=== PATIENT | male | born 1950 | race Caucasian/White ===

== ENCOUNTER 2019-07-06 21:15 | Emergency (ER) | payer BC, SELFPAY ==
[2019-07-06 21:21] VITALS: BP 216/89; PULSE 76; RESP 18; TEMP 36.6; O2SAT 98
--- NOTE | 2019-07-06 21:31 | ED.GENADULT ---
HPI - General Adult General Chief complaint: Hypertension Stated complaint: states high blood pressure Time Seen by Provider: 07/06/19 21:30 Source: patient Mode of arrival: Ambulatory Limitations: no limitations History of Present Illness HPI narrative: Patient is a 68-year-old male with history of hypertension presenting with headache and elevated blood pressure. He states that his doctor changed his medication he was on a combination of an MARTÍNEZ-inhibitor and amlodipine however he was having leg swelling so he was taken off amlodipine prior and just placed on the Martínez inhibitor. They have noticed at blood pressure has been more elevated. Today he was having worsening headache they took his blood pressure and it was extremely high so he came to the ED. He now really does not have a headache he has no chest pain or shortness of breath. Blood pressure is noted to be elevated. Related Data Allergies Allergy/AdvReac Type Severity Reaction Status Date / Time No Known Drug Allergies Allergy Verified 07/06/19 21:24 Review of Systems Review of Systems Narrative: GENERAL: Denies chills, fatigue, malaise, fever, sweats, travel HEENT: Denies sinus pain, ear pain, sore throat, difficulty swallowing, neck pain RESPIRATORY: Denies dyspnea, cough, wheezing, hemoptysis, sputum. CARDIOVASCULAR: Denies chest pain, palpitations, orthopnea, edema GASTROINTESTINAL: Denies nausea, vomiting, abdominal pain, diarrhea, constipation, melena. : Denies dysuria, frequency, incontinence, hematuria, urinary retention, flank pain. MUSCULOSKELETAL: Denies weakness, joint pain, or bony pain SKIN: No rash, no erythema, no pruritus NEUROLOGIC: Denies weakness, dizziness, headache, numbness, change in speech, confusion PSYCHIATRIC: No concerning psychosocial issues. 12 point review of systems is negative except for those stated above and HPI Patient History Medical History Hypertension (Acute) Social History Smoking Status: Former smoker alcohol intake frequency: holidays/special occasions only Substance Use Type: does not use Exam Initial Vital Signs Initial Vital Signs: Vital Signs Temperature 97.9 F 07/06/19 21:21 Pulse Rate 76 07/06/19 21:21 Respiratory Rate 18 07/06/19 21:21 Blood Pressure 216/89 H 07/06/19 21:21 Pulse Oximetry 98 07/06/19 21:21 GENERAL: Well-appearing, well-nourished and in no acute distress. HEENT: Head atraumatic,EOMI, pupils reactive, face symmetric, moist mucous membranes CARDIOVASCULAR: Regular rate and rhythm without murmurs, rubs or gallops. RESPIRATORY: Breath sounds equal bilaterally, no wheezes rales or rhonchi. ABDOMEN: Soft, nontender. Normoactive bowel sounds all 4 quadrants. No guarding or rebound. EXTREMITIES: Normal range of motion, no clubbing or edema. Neurovascularly intact NEUROLOGICAL: Alert and oriented x4.Normal gait and speech. SKIN: Warm, dry, no laceration, no petechiae, no rashes or lesions. Course Orders Ordered: ED Orders 07/06/19 21:49 XR chest 1V Stat EKG-12 Lead Stat 07/06/19 21:55 Complete Blood Count AUTO DIFF Stat Comprehensive Metabolic Panel Stat Lipase Stat Troponin & CK Cardiac Panel Stat Discontinued Medications Acetaminophen (Tylenol) 975 mg PO NOW ONE Stop: 07/06/19 23:31 Last Admin: 07/06/19 23:36 Dose: 975 mg Documented by: SHREE Aspirin (Aspirin Chew) 324 mg PO NOW ONE Stop: 07/06/19 21:50 Last Admin: 07/06/19 21:53 Dose: 324 mg Documented by: SANTOS Sodium Chloride (Normal Saline 0.9%) 1,000 mls @ 150 mls/hr IV CONT CARRIE Last Admin: 07/06/19 21:53 Dose: 150 mls/hr Documented by: PURAFARL Vital Signs Vital signs: Vital Signs - 8 hr 07/06/19 21:21 07/06/19 21:41 07/06/19 21:59 Temperature 97.9 F Pulse Rate 76 73 75 Respiratory Rate 18 17 22 Blood Pressure 216/89 H Blood Pressure [Right Arm] 199/67 H 191/68 H Pulse Oximetry 98 99 98 07/06/19 22:30 07/06/19 23:39 Temperature Pulse Rate 71 Respiratory Rate 14 Blood Pressure 167/76 H Blood Pressure [Right Arm] 171/64 H Pulse Oximetry 97 Medical Decision Making Lab Data Lab results reviewed: Yes I reviewed the patient's lab results. Result diagrams: 07/06/19 21:55 10/30/19 21:55 Labs: Lab Results 07/06/19 07/06/19 Range/Units 21:55 21:55 WBC 9.0 (4.5-11.0) X10^3/uL RBC 5.04 (4.5-5.9) X10^6/uL Hgb 14.0 (13.5-17.5) g/dL Hct 40.4 L (41-53) % MCV 80.2 (80-100) fL MCH 27.8 (26-34) PG MCHC 34.7 (30-36) % RDW 16.9 H (11.6-14.8) % Plt Count 213 (150-400) X10^3/uL Neut % (Auto) 61.3 (50-75) % Lymph % (Auto) 23.9 L (25-40) % [place] % (Auto) 9.2 (3-14) % Eos % (Auto) 4.8 H (2-4) % Baso % (Auto) 0.8 (0-2) % Neut # (Auto) 5500 (7398-5706) /uL Lymph # (Auto) 2200 (8839-6806) /uL [place] # (Auto) 800 (0-900) /uL Eos # (Auto) 400 (0-450) /uL Baso # (Auto) 100 (0-100) /uL Sodium 140 (137-145) mmol/L Potassium 3.5 (3.4-5.1) mmol/L Chloride 101 (98-107) mmol/L Carbon Dioxide 28 (22-32) mmol/L BUN 14 (9-20) mg/dL Creatinine 0.80 (0.66-1.25) mg/dL Estimated GFR > 60.0 (>60) mL/min BUN/Creatinine Ratio 17.5 (6-22) Glucose 173 H (80-110) mg/dL Calcium 9.7 (8.4-10.2) mg/dL Total Bilirubin 0.4 (0.2-1.3) mg/dL AST 41 (17-59) IU/L ALT 72 (21-72) IU/L Alkaline Phosphatase 76 (38-126) U/L Total Creatine Kinase 157 (55-170) U/L CK-MB (CK-2) 2.14 (<2.37) ng/mL CK-MB (CK-2) Rel Index 1.4 L (1.5-5.0) % Troponin I 0.017 (0.01-0.034) ng/mL Total Protein 7.6 (6.3-8.2) g/dL Albumin 4.6 (3.5-5.0) g/dL Globulin 3.0 (1.7-4.1) g/dL Albumin/Globulin Ratio 1.5 (1.0-2.8) Lipase 111 (23-300) U/L Imaging Data Chest x-ray: Attestation: I personally reviewed and interpreted this imaging study as follows: My impression: no acute process ECG Data Attestation: I personally reviewed and interpreted this ECG as follows: Prior ECG tracings: not available for review Interpretation: Normal sinus rhythm rate 72 p.r. interval 199 QRS [address] elevations depressions or T-wave inversions MDM Narrative Medical decision making narrative: Patient overall is feeling better mild headache now all blood pressure is decreased significantly without any intervention. I do recommend that he take his blood pressure once daily and record it. He has a follow-up appointment with his PCP next week. He is a has no focal deficits no chest pain or shortness of breath. No sign of end-organ damage. Discharge Plan Departure Patient Disposition: Home Clinical Impression: Hypertension Qualifiers: Hypertension type: essential hypertension Qualified Code(s): I10 - Essential (primary) hypertension Discharge Date/Time: 07/06/19 23:39 Instructions: DI for High Blood Pressure Activity Restrictions/Additional Instructions: *You have been diagnosed with hypertension *What to do: At this time I recommend that you take your blood pressure once a day same time every day either 1st thing in the morning or right before bed. Record the number and report back to your doctor. You will likely need blood pressure medication adjustment. *Continue to take medications as directed *Follow up with your primary care provider in 2-3 days *Return to ER if you should have increasing headache, chest pain or any new, worsening or concerning symptoms Referrals: Toni Massey MD [Primary Care Provider] -
--- NOTE | 2019-07-06 21:36 | PC.NURSE ---
He stated he has had high blood pressure and a headache for 7 weeks now,the nurse hotline told him to come to the ED tonight when these symptoms persisted.
[2019-07-06 21:41] VITALS: BP 199/67; PULSE 73; RESP 17; O2SAT 99
--- NOTE | 2019-07-06 21:49 | DI.RAD.S_ITS ---
PROCEDURE: XR CHEST 1V INDICATIONS: chest pain TECHNIQUE: One view of the chest was acquired. COMPARISON: None. FINDINGS: Surgical changes and devices: Cervical spine fixation hardware Lungs and pleura: Lungs are clear. No pleural effusions or pneumothorax. Mediastinum: Mediastinal contours appear normal. Heart size is normal. Bones and chest wall: No suspicious bony lesions. Overlying soft tissues appear unremarkable. No acute cardiopulmonary disease process. Dictated by: Adelina Iverson MD, PhD on 07/07/2019 at 8:28 Approved by: Adelina Iverson MD, PhD on 07/07/2019 at 8:29
[2019-07-06] MEDS: ASPIRIN 81 MG CHEW TAB 324 MG PO (21:53)
[2019-07-06] MEDS: SODIUM CHLORIDE 0.9% 1,000 ML 150 ML IV (21:53)
[2019-07-06 21:59] VITALS: BP 191/68; PULSE 75; RESP 22; O2SAT 98
[2019-07-06 22:05] LABS: Add Manual Diff / Slide Review NO; Basophils Absolute Auto 100 /uL (0-100); Basophils Percent Auto 0.8 % (0-2); Eosinophils Absolute Auto 400 /uL (0-450); Eosinophils Percent Auto 4.8 % (2-4); Hematocrit 40.4 % (41-53); Lymphocytes Absolute Auto 2200 /uL (1100-4500); Lymphocytes Percent Auto 23.9 % (25-40); Mean Corpuscular HGB Conc 34.7 % (30-36); Mean Corpuscular Hemoglobin 27.8 PG (26-34); Mean Corpuscular Volume 80.2 fL (80-100); Monocytes Absolute Auto 800 /uL (0-900); Monocytes Percent Auto 9.2 % (3-14); Neutrophils Absolute Auto 5500 /uL (1500-7000); Neutrophils Percent Auto 61.3 % (50-75); Platelet Count 213 X10^3/uL (150-400); Red Blood Cell Count 5.04 X10^6/uL (4.5-5.9); Red Cell Distribution Width 16.9 % (11.6-14.8)
[2019-07-06 22:14] LABS: Alanine Aminotransferase 72 IU/L (21-72); Albumin 4.6 g/dL (3.5-5.0); Albumin Globulin Ratio 1.5 (1.0-2.8); Alkaline Phosphatase 76 U/L (38-126); Aspartate Aminotransferase 41 IU/L (17-59); BUN Creatinine Ratio 17.5 (6-22); Bilirubin Total 0.4 mg/dL (0.2-1.3); Blood Urea Nitrogen 14 mg/dL (9-20); Calcium 9.7 mg/dL (8.4-10.2); Carbon Dioxide 28 mmol/L (22-32); Chloride 101 mmol/L (98-107); Creatine Kinase 157 U/L (55-170); Estimated Glomerular Filt Rate > 60.0 mL/min (>60); Glucose 173 mg/dL (80-110); HEMOLYSIS 16 (0-50); Lipase 111 U/L (23-300); Potassium 3.5 mmol/L (3.4-5.1); Sodium 140 mmol/L (137-145); Total Protein 7.6 g/dL (6.3-8.2)
[2019-07-06 22:26] LABS: Troponin I 0.017 ng/mL (0.01-0.034)
[2019-07-06 22:29] LABS: CKMB % Relative Index 1.4 % (1.5-5.0); Creatine Kinase MB 2.14 ng/mL (<2.37)
[2019-07-06 22:30] VITALS: BP 171/64; PULSE 71; RESP 14; O2SAT 97
[2019-07-06] MEDS: ACETAMINOPHEN 325 MG TABLET 975 MG PO (23:36)
[2019-07-06 23:39] VITALS: BP 167/76
== END 2019-07-06 23:39 | disposition home or self-care (01) ==
PROVIDERS: Emergency Provider Emergency Medicine; Family Provider Family Medicine; PCP Family Medicine
DX: I10 Essential (primary) hypertension (principal); R51 Headache
CPT/HCPCS: 36415; 71045; 80053; 82550; 82553; 83690; 84484; 85025; 93005; 93010; 99283

== ENCOUNTER → 2023-11-10 13:32 | Outpatient (CLI) | payer BC, SELFPAY ==
[2023-11-10 15:00] LABS: BUN Creatinine Ratio 21.6 (6-22); Blood Urea Nitrogen 16 mg/dL (9-20); Calcium 9.8 mg/dL (8.4-10.2); Carbon Dioxide 31 mmol/L (22-32); Chloride 105 mmol/L (98-107); Estimated Glomerular Filt Rate > 60 mL/min (>60); Glucose 117 mg/dL (80-110); HEMOLYSIS < 15 (0-50); Potassium 3.5 mmol/L (3.4-5.1); Sodium 143 mmol/L (137-145)
== END ==
PROVIDERS: Family Provider Family Medicine; PCP Family Medicine; Visit Provider Nurse Practitioner Family
DX: I10 Essential (primary) hypertension (principal); Q23.1 Congenital insufficiency of aortic valve; I35.1 Nonrheumatic aortic (valve) insufficiency; I71.21 Aneurysm of the ascending aorta, without rupture
CPT/HCPCS: 36415; 80048; 83735

== ENCOUNTER 2025-02-23 20:42 | Inpatient (IN) | payer BC, SELFPAY ==
[2025-02-23] VITALS (11 sets, daily range): BP systolic 170–213; BP diastolic 72–109; PULSE 68–73; RESP 13–27; TEMP 36.6; O2SAT 96–98; BMI 31.5
--- NOTE | 2025-02-23 20:52 | ED.NEUROSD ---
HPI - Neuro Symptoms/Deficit General Chief Complaint: Neuro Symptoms/Deficit Stated Complaint: Left leg weakness Time Seen by Provider: 02/23/25 20:47 History of Present Illness HPI Narrative: Patient is a 74-year-old male with a past medical history of hypertension diabetes, comes into the ED from home for evaluation of left leg weakness, he states that this started at around 6:00 p.m. today states that he did have a procedure to the superficial part of his skin to remove a mole, he states that this was at around 1:00 p.m., he states that he tolerated this fine was able to walk out of the office. He states that the weakness in his left leg started spontaneously, no trauma or falls, states that he does have history of neck and back surgery but is not complaining of any real pain or deficits. At time of initial evaluation patient NIH of 3 given patient inability to lift leg up. Otherwise sensations are intact Related Data Allergies Allergy/AdvReac Type Severity Reaction Status Date / Time No Known Drug Allergies Allergy Verified 07/06/19 21:24 Review of Systems Review of Systems Narrative: General: Denies fever, chills, weight loss HEENT: Denies headache, eye drainage, eye irritation, head trauma, sore throat, voice change Cardiovascular: Denies any chest pain, palpitations, tachycardia Respiratory: Denies any shortness of breath, cough, wheeze, stridor GI/: Denies any abdominal pain, nausea, vomiting, diarrhea, bright red blood per rectum, melanotic stools, urinary frequency, urinary retention, dysuria, hematuria MSK: Denies any joint pain, muscle pains, swelling Skin: Denies any rashes, lesions, discoloration Neuro: Positive left lower leg weakness Denies any headache, lightheadedness, dizziness, fainting, weakness Psych: Denies SI/HI Patient History Medical History (Updated 02/23/25 @ 22:49 by Humberto Zhou DO) Hypertension Social History Smoking Status: Former smoker alcohol intake frequency: holidays/special occasions only Exam Narrative Exam Narrative: General: Cooperative, well-developed, not in acute distress HEENT: Normocephalic, atraumatic, PERRLA, normal sclera, eyelids normal Neck: Active full range of motion, atraumatic Chest: Normal to inspection, negative crepitus, no overlying erythema ecchymosis Respiratory: Normal respiratory effort, not in acute respiratory distress, clear to auscultation bilaterally negative cough, wheeze, tachypnea, rhonchi, rales Cardiology: Regular rate rhythm negative gallop, murmur, rubs GI/: No tenderness to palpation, soft, non rigid, normal to inspection, exam deferred MSK: Full active range of motion in all 4 extremities, atraumatic, no tenderness to palpation of any bony prominences Skin: No rashes or lesions noted Neuro: Alert awake oriented x3, patient NIH of 3 for inability to lift the left lower extremity, otherwise remainder of examination is normal Psych: Cooperative, negative suicidal or homicidal ideations Initial Vital Signs Initial Vital Signs: Vital Signs Pulse Rate 72 02/23/25 20:48 Blood Pressure 213/88 H 02/23/25 20:48 Pulse Oximetry 97 02/23/25 20:48 Scores NIH Stroke Scale Level of Conciousness: Alert, keenly responsive Ask month/age: Answers both questions correctly. Open/close eyes, close hand: Performs both tasks correctly Best gaze horizontal: Normal Visual wyatt: No visual loss Facial palsy: Normal symetrical movement Left arm drift: No drift for full 10 sec Right arm drift: No drift for full 10 sec Left leg drift: No effort against gravity Right leg drift: No drift for full 5 sec Limb ataxia: Absent Sensory on face/arms/legs: Normal, no sensory loss Best language: No aphasia, normal Dysarthria: Normal Extinction or inattention: No abnormality Total NIH Stroke scale score: 3 Course Orders Ordered: ED Orders 02/23/25 20:54 CT Stroke Stat Urinalysis and Microscopic Stat Urine Drug Screen, Rapid Stat EKG-12 Lead Stat 02/23/25 21:14 CT angio head and neck Stat 02/23/25 21:28 CT lumbar spine wo con Stat 02/23/25 21:45 Complete Blood Count AUTO DIFF Stat Comprehensive Metabolic Panel Stat Ethanol (ETOH) Stat MAG [Magnesium] Stat PTT Partial Thromboplastin Herb Stat Prothrombin Time INR Stat Troponin & CK Cardiac Panel Stat Discontinued Medications Dexamethasone (Dexamethasone 10 Mg/Ml Vial) 10 mg IV NOW ONE Stop: 02/23/25 21:36 Last Admin: 02/23/25 21:58 Dose: 10 mg Documented By: GENET Nicardipine HCl 25 mg/ Sodium (Chloride) 250 mls @ 50 mls/hr IV TITRATE CARRIE; Protocol Last Admin: 02/23/25 22:23 Dose: Not Given Documented By: AB Vital Signs Vital signs: Vital Signs - 8 hr 02/23/25 20:48 02/23/25 20:48 02/23/25 20:53 Temperature 97.8 F Pulse Rate 72 73 Respiratory Rate 20 Blood Pressure 213/88 H 213/88 H Pulse Oximetry 97 96 Oxygen Delivery Method Room Air 02/23/25 21:13 02/23/25 21:14 02/23/25 21:14 Temperature Pulse Rate 72 72 Respiratory Rate 23 Blood Pressure 179/109 H Pulse Oximetry 96 Oxygen Delivery Method 02/23/25 21:30 02/23/25 22:01 02/23/25 22:10 Temperature Pulse Rate 72 69 Respiratory Rate 27 H Blood Pressure 180/79 H Pulse Oximetry 96 96 Oxygen Delivery Method 02/23/25 22:10 02/23/25 22:15 02/23/25 22:15 Temperature Pulse Rate 70 70 Respiratory Rate 13 15 Blood Pressure 188/80 H Pulse Oximetry 96 98 Oxygen Delivery Method 02/23/25 22:20 02/23/25 22:20 Temperature Pulse Rate 68 Respiratory Rate 21 Blood Pressure 170/72 H Pulse Oximetry 96 Oxygen Delivery Method Room Air MDM - Neuro Symptoms/Deficit Lab Data 02/23/25 21:45 02/23/25 21:45 Labs: Lab Results 02/23/25 Range/Units 21:45 WBC 9.2 (4.5-11.0) X10^3/uL RBC 5.04 (4.5-5.9) X10^6/uL Hgb 14.6 (13.5-17.5) g/dL Hct 42.5 (41-53) % MCV 84.4 (80-100) fL MCH 28.9 (26-34) PG MCHC 34.3 (30-36) % RDW 14.3 (11.6-14.8) % Plt Count 217 (150-400) X10^3/uL Neut % (Auto) 54.6 (50-75) % Lymph % (Auto) 25.6 (25-40) % [place] % (Auto) 9.3 (3-14) % Eos % (Auto) 9.5 H (2-4) % Baso % (Auto) 1.0 (0-2) % Neut # (Auto) 5000 (2982-5177) /uL Lymph # (Auto) 2300 (8853-5325) /uL [place] # (Auto) 900 (0-900) /uL Eos # (Auto) 900 H (0-450) /uL Baso # (Auto) 100 (0-100) /uL PT 11.6 (9.4-12.5) SECONDS INR 1.0 (0.9-1.3) APTT 40 H (25.1-36.5) SECONDS Sodium 136 L (137-145) mmol/L Potassium 3.7 (3.4-5.1) mmol/L Chloride 98 (98-107) mmol/L Carbon Dioxide 30 (22-32) mmol/L BUN 19 (9-20) mg/dL Creatinine 0.95 (0.66-1.25) mg/dL Estimated GFR > 60 (>60) mL/min BUN/Creatinine Ratio 20.0 (6-22) Glucose 89 (70-99) mg/dL Calcium 9.7 (8.4-10.2) mg/dL Magnesium 1.8 (1.6-2.3) mg/dL Total Bilirubin 0.5 (0.2-1.3) mg/dL AST 31 (17-59) IU/L ALT 30 (<50) IU/L Alkaline Phosphatase 78 (38-126) U/L Total Creatine Kinase 101 (55-170) U/L Troponin I 0.013 (0.01-0.034) ng/mL Total Protein 7.2 (6.3-8.2) g/dL Albumin 4.5 (3.5-5.0) g/dL Globulin 2.7 (1.7-4.1) g/dL Albumin/Globulin Ratio 1.7 (1.0-2.8) Ethyl Alcohol < 10 (<10) mg/dL Point of Care Testing Glucose POC [address] scan - head: Radiologist's Impression: [address] [address] [address] Scan Report Signed Patient: Anderson Valencia MR#: [id number] : 1950 Acct:[id number] Age/Sex: 74 / M Date of Service: 02/23/25 Loc: ED Accession Number: [id number] Procedure: CT Stroke Ordering Provider: Humberto Zhou D.O. PROCEDURE: CT STROKE INDICATIONS: left lower leg weakness TECHNIQUE: Noncontrast 4.5 mm thick angled axial sections acquired from the foramen magnum to the vertex, with coronal reformats. For radiation dose reduction, the following was used: automated exposure control, adjustment of mA and/or kV according to patient size. COMPARISON: None. FINDINGS: Image quality: Diagnostic. CSF spaces: Basal cisterns are patent. No extra-axial fluid collections. The ventricles are symmetric in size and shape. Brain: No intracranial bleeds or mass effect. There is cerebral volume loss, with resultant ventricular and sulcal prominence. There are periventricular and deep white matter chronic small vessel ischemic changes. There is intracranial internal carotid artery atherosclerosis. Skull and face: Calvarium and visualized facial bones appear intact, without suspicious lesions. Sinuses: Visualized sinuses and mastoids are clear. IMPRESSION: 1. CT head without acute intracranial abnormalities or acute calvarial fractures. 2. Age-related senescent changes and sequela of chronic small vessel ischemic disease. Findings were discussed with Dr. Zhou at 2117 hrs. CTA - brain/neck: Radiologist's Impression: [place] [address] CT Scan Report Signed Patient: Anderson Valencia MR#: [id number] : 1950 Acct:[id number] Age/Sex: 74 / M Date of Service: 02/23/25 Loc: ED Accession Number: [id number] Procedure: CT angio head and neck Ordering Provider: Humberto Zhou D.O. PROCEDURE: CT ANGIO HEAD AND NECK INDICATIONS: left lower leg weakness TECHNIQUE: After the administration of intravenous contrast, 1 mm thick sections acquired from the aortic arch through the [place] of [place]. 3-dimensional jevvqwr-ebkhrbjrt-lcjueecanq (MIP) and/or volume rendering reformats were acquired of the central intracranial vasculature and neck separately. For radiation dose reduction, the following was used: automated exposure control, adjustment of mA and/or kV according to patient size. COMPARISON: [facility], CT, CT STROKE, 02/23/2025, 20:57. FINDINGS: Image quality: Diagnostic. BRAIN: CSF spaces: Ventricles are normal in size and shape. Basal cisterns are patent. No extra-axial fluid collections. Brain: No midline shift. No intracranial masses. No suspicious enhancement. Betts-white matter interface appears intact. Skull and face: Calvarium and facial bones appear intact, without suspicious lesions. Orbits appear normal. Sinuses: Mild left maxillary and right sphenoid sinus mucosal thickening. Remainder of the paranasal sinuses appear clear. Mastoid air cells are well-aerated. HEAD CT ANGIOGRAPHY: Anterior circulation: There are atherosclerotic calcifications of the intracranial segments of the internal carotid arteries. Intracranial internal carotid arteries appear patent without high-grade stenosis. There is flow/opacification within the paired anterior cerebral arteries. There is opacification within the middle cerebral arteries. The anterior communicating artery is seen. No aneurysms are seen. No occlusion. Posterior circulation: Visualized portions of the vertebral arteries are patent and join to form a normal appearing basilar artery. No evidence for high-grade stenosis. No occlusions. There is opacification of the posterior cerebral arteries. No aneurysms are seen. NECK CT ANGIOGRAPHY: Carotid system: The great vessels demonstrate a conventional anatomy as they arise from the aortic arch. Atherosclerotic calcifications of the aortic arch are present. The origins of the common carotid arteries appear patent. The common carotid arteries appear patent throughout their visualized courses without high grade stenosis. Atherosclerosis of the carotid bifurcations bilaterally. The bifurcation regions are both patent without high grade stenosis. The internal carotid arteries demonstrate normal calibers and courses. Posterior circulation: The origins of the vertebral arteries both appear patent without hemodynamically significant stenosis. The more superior extracranial portions of both vertebral arteries also demonstrate normal courses and calibers. They join to form a normal appearing basilar artery. Soft tissues: Visualized neck soft tissues demonstrate no suspicious abnormalities. No apical pneumothorax. Bones: Postsurgical changes from anterior cervical discectomy and fusion of C5 through C7. There are severe spinal canal stenosis at C5 and C6. No suspicious bony lesions. Visualized cervical spine appears normally aligned. No acute compression fractures of the vertebral bodies. IMPRESSION: No significant intracranial arterial abnormality is seen. No significant abnormality is seen within the arteries of the neck. Status post ACDF of C5 through C7 with severe spinal canal stenosis at C5 and C6 Mild left maxillary and right sphenoid sinus disease. If there is persistent or high clinical suspicion for acute cerebrovascular ischemia/stroke, more sensitive evaluation with brain MRI can be considered. Any quantitative measurements of stenosis were performed using NASCET criteria. ECG Data Interpretation: EKG interpreted ED physician sinus 70 beats per minute QTC 416, left axis deviation nonspecific ST changes no STEMI MDM Narrative Medical decision making narrative: Patient is a 74-year-old male with a past medical history of hypertension diabetes presenting for left lower extremity weakness, states it was a sudden onset at 6:00 p.m., he states that this has caused him to not be able to walk, denies any pain to his lower extremity or his lumbar back. He denies any trauma or falls not on any blood thinners. Patient at time of evaluation NIH of 3 for weakness of the left lower extremity, patient unable to keep left leg up against gravity. Patient's blood glucose in the 90s at time of evaluation. Patient states that he did have a local anesthetic to his left lower extremity at around 1:00 p.m. to remove a mole. He states that he was able to walk and ambulate out of the office at that time. He denies any numbness tingling sensations to bilateral lower extremities, he does state that he has a baseline right foot decreased sensation after he had lower back surgery in 2001. He denies any bowel or urinary incontinence, denies any saddle paresthesias. Patient sent immediately to CT scan to rule out stroke 2108: Dr. Condon (tele stroke neurologist) evaluating patient at bedside on stroke robot, was recommending to have nicardipine at bedside and TNK but after evaluation does not believe this is central cause believes it is more peripheral. Is recommending admission as well as additional imaging to the lumbar spine, as well as MRI brain with and without. We will order 10 mg IV Decadron for peripheral neuropathy. 2202: Discussed case with [facility], reaching out for spine consultation given patient has a left lower extremity weakness, awaiting call back 2250: Patient re-evaluated by me, no new complaints at this time, informed her that I am still awaiting discussion with spine surgery at [facility], she understands need for admission or transfer agrees with the plan 2300: Discussed case with Dr. Soria (spine) at [facility], he states that he personally reviewed the images does not see any acute findings, discussed the case and he states that patient does not need emergent or urgent transfer at this time, is stating that patient should be admitted for an MRI of the lumbar and thoracic spine given patient with persistently weak left lower extremity. No further recommendations at this time The patient's management plan was discussed Dr. Villanueva, who agrees to admit the patient to their service and assumes care of this patient at this time. Full admission orders will be placed by the primary team. Critical Care Time Critical Care Time Critical Care Time: Yes Total Critical Care Time: 35 Attestation: Authorized and Performed by: Humberto Zhou DO Total critical care time: Approximately [35] minutes Due to a high probability of clinically significant, life threatening deterioration, the patient required my highest level of preparedness to intervene emergently and I personally spent this critical care time directly and personally managing the patient. This critical care time included obtaining a history; examining the patient; pulse oximetry; ordering and review of studies; arranging urgent treatment with development of a management plan; evaluation of patient's response to treatment; frequent reassessment; and, discussions with other providers. This critical care time was performed to assess and manage the high probability of imminent, life-threatening deterioration that could result in multi-organ failure. It was exclusive of separately billable procedures and treating other patients and teaching time. Please see MDM section and the rest of the note for further information on patient assessment and treatment. Discharge Plan Departure Patient Disposition: Admitted as Observation Clinical Impression: Left leg weakness
--- NOTE | 2025-02-23 21:14 | DI.CT.S_ITS ---
PROCEDURE: CT ANGIO HEAD AND NECK INDICATIONS: left lower leg weakness TECHNIQUE: After the administration of intravenous contrast, 1 mm thick sections acquired from the aortic arch through the [place] of [place]. 3-dimensional srefhez-zfqfbsiyt-bwbbquxekg (MIP) and/or volume rendering reformats were acquired of the central intracranial vasculature and neck separately. For radiation dose reduction, the following was used: automated exposure control, adjustment of mA and/or kV according to patient size. COMPARISON: Merged With [facility], CT, CT STROKE, 02/23/2025, 20:57. FINDINGS: Image quality: Diagnostic. BRAIN: CSF spaces: Ventricles are normal in size and shape. Basal cisterns are patent. No extra-axial fluid collections. Brain: No midline shift. No intracranial masses. No suspicious enhancement. Betts-white matter interface appears intact. Skull and face: Calvarium and facial bones appear intact, without suspicious lesions. Orbits appear normal. Sinuses: Mild left maxillary and right sphenoid sinus mucosal thickening. Remainder of the paranasal sinuses appear clear. Mastoid air cells are well-aerated. HEAD CT ANGIOGRAPHY: Anterior circulation: There are atherosclerotic calcifications of the intracranial segments of the internal carotid arteries. Intracranial internal carotid arteries appear patent without high-grade stenosis. There is flow/opacification within the paired anterior cerebral arteries. There is opacification within the middle cerebral arteries. The anterior communicating artery is seen. No aneurysms are seen. No occlusion. Posterior circulation: Visualized portions of the vertebral arteries are patent and join to form a normal appearing basilar artery. No evidence for high-grade stenosis. No occlusions. There is opacification of the posterior cerebral arteries. No aneurysms are seen. NECK CT ANGIOGRAPHY: Carotid system: The great vessels demonstrate a conventional anatomy as they arise from the aortic arch. Atherosclerotic calcifications of the aortic arch are present. The origins of the common carotid arteries appear patent. The common carotid arteries appear patent throughout their visualized courses without high grade stenosis. Atherosclerosis of the carotid bifurcations bilaterally. The bifurcation regions are both patent without high grade stenosis. The internal carotid arteries demonstrate normal calibers and courses. Posterior circulation: The origins of the vertebral arteries both appear patent without hemodynamically significant stenosis. The more superior extracranial portions of both vertebral arteries also demonstrate normal courses and calibers. They join to form a normal appearing basilar artery. Soft tissues: Visualized neck soft tissues demonstrate no suspicious abnormalities. No apical pneumothorax. Bones: Postsurgical changes from anterior cervical discectomy and fusion of C5 through C7. There are severe spinal canal stenosis at C5 and C6. No suspicious bony lesions. Visualized cervical spine appears normally aligned. No acute compression fractures of the vertebral bodies. IMPRESSION: No significant intracranial arterial abnormality is seen. No significant abnormality is seen within the arteries of the neck. Status post ACDF of C5 through C7 with severe spinal canal stenosis at C5 and C6 Mild left maxillary and right sphenoid sinus disease. If there is persistent or high clinical suspicion for acute cerebrovascular ischemia/stroke, more sensitive evaluation with brain MRI can be considered. Any quantitative measurements of stenosis were performed using NASCET criteria. Dictated by: Angelito Car M.D. on 02/23/2025 at 21:56 Approved by: Angelito Car M.D. on 02/23/2025 at 22:03
--- NOTE | 2025-02-23 21:28 | DI.CT.S_ITS ---
PROCEDURE: CT LUMBAR SPINE WO CON INDICATIONS: left lower leg weakness, hx of spinal fusion TECHNIQUE: Noncontrast 3 mm thick sections acquired from the T12 level to the sacrum. Sagittal and coronal reformats were constructed. For radiation dose reduction, the following was used: automated exposure control. COMPARISON: None. FINDINGS: Image quality: Diagnostic. Bones: There is normal bony alignment. No acute vertebral body compression fractures. No suspicious lytic or blastic bony lesions. No pars defects. Moderate-severe multilevel multifactorial lumbar spondylosis with moderate bilateral facet arthropathy, variable degrees of the bony bilateral neuroforaminal stenosis and severe spinal stenosis at L2-3, L3-4, and moderate-severe stenosis at L4-5. Soft tissues: No retroperitoneal masses or hematomas. Right peripelvic cyst. Partially exophytic left renal cyst. No hydronephrosis. Atherosclerosis of the abdominal aorta and iliac vessels. Prominent hiatal hernia. Visualized aorta is normal in caliber. IMPRESSION: Lumbar spine without acute osseous abnormalities or traumatic malalignment. Severe multilevel, multifactorial lumbar spondylosis with severe spinal canal stenosis noted at L2-3, L3-4, and moderate-severe stenosis at L4-5. There are variable degrees of at least moderate bilateral neuroforaminal stenosis throughout the lumbar spine. Dictated by: Angelito Car M.D. on 02/23/2025 at 23:21 Approved by: Angelito Car M.D. on 02/23/2025 at 23:27
[2025-02-23 21:53] LABS: Add Manual Diff / Slide Review NO; Basophils Absolute Auto 100 /uL (0-100); Eosinophils Absolute Auto 900 /uL (0-450); Eosinophils Percent Auto 9.5 % (2-4); Hematocrit 42.5 % (41-53); Hemoglobin 14.6 g/dL (13.5-17.5); Lymphocytes Absolute Auto 2300 /uL (1100-4500); Lymphocytes Percent Auto 25.6 % (25-40); Mean Corpuscular HGB Conc 34.3 % (30-36); Mean Corpuscular Hemoglobin 28.9 PG (26-34); Mean Corpuscular Volume 84.4 fL (80-100); Monocytes Absolute Auto 900 /uL (0-900); Monocytes Percent Auto 9.3 % (3-14); Neutrophils Absolute Auto 5000 /uL (1500-7000); Neutrophils Percent Auto 54.6 % (50-75); Platelet Count 217 X10^3/uL (150-400); Red Blood Cell Count 5.04 X10^6/uL (4.5-5.9); Red Cell Distribution Width 14.3 % (11.6-14.8); White Blood Cell Count 9.2 X10^3/uL (4.5-11.0)
[2025-02-23] MEDS: DEXAMETHASONE 10 MG/ML VIAL IV (21:58)
[2025-02-23 22:01] LABS: Prothrombin Time 11.6 SECONDS (9.4-12.5)
[2025-02-23 22:04] LABS: PTT Partial Thromboplastin Tim 40 SECONDS (25.1-36.5)
[2025-02-23 22:07] LABS: Magnesium 1.8 mg/dL (1.6-2.3)
[2025-02-23 22:08] LABS: Alanine Aminotransferase 30 IU/L (<50); Albumin 4.5 g/dL (3.5-5.0); Albumin Globulin Ratio 1.7 (1.0-2.8); Alkaline Phosphatase 78 U/L (38-126); Aspartate Aminotransferase 31 IU/L (17-59); Bilirubin Total 0.5 mg/dL (0.2-1.3); Blood Urea Nitrogen 19 mg/dL (9-20); Calcium 9.7 mg/dL (8.4-10.2); Carbon Dioxide 30 mmol/L (22-32); Chloride 98 mmol/L (98-107); Creatine Kinase 101 U/L (55-170); Estimated Glomerular Filt Rate > 60 mL/min (>60); Globulin 2.7 g/dL (1.7-4.1); Glucose 89 mg/dL (70-99); HEMOLYSIS < 15 (0-50); Potassium 3.7 mmol/L (3.4-5.1); Sodium 136 mmol/L (137-145); Total Protein 7.2 g/dL (6.3-8.2)
--- NOTE | 2025-02-23 22:13 | EKG_ITS ---
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
[2025-02-23 22:20] LABS: Ethanol (ETOH) < 10 mg/dL (<10); Troponin I 0.013 ng/mL (0.01-0.034)
--- NOTE | 2025-02-23 23:06 | DI.MRI.S_ITS ---
PROCEDURE: MR LUMBAR SPINE WO/W CON INDICATIONS: left leg weakness TECHNIQUE: Noncontrast sagittal T1 spin echo and T2 fast echo, sagittal STIR, and T2 fast spin echo through the lumbar spine. In cases with scoliosis, additional coronal T2 fast spin echo may be performed. COMPARISON: [facility], CT, CT LUMBAR SPINE WO CON, 02/23/2025, 21:31. FINDINGS: Image quality: Excellent. Alignment and Curvature: Trace retrolisthesis of L1 on L2, L2 on L3, L3 on L4, L4 on L5, L5 on S1. Bone Marrow: Marrow is of normal overall signal. Schmorl's nodes are present most prominently at the superior endplate of L3. No acute vertebral body compression fractures. Spinal Cord: Conus medullaris terminates at the L1 level. Visualized cord demonstrates normal signal and size. Paraspinous Soft Tissues: No paravertebral masses. Discs: Multilevel moderate disc desiccation T12-L1: Minimal disc bulge without spinal stenosis. Mild bilateral foraminal narrowing with facet and ligamentum flavum hypertrophy. L1-L2: Mild disc bulge without spinal stenosis. Mild left foraminal narrowing. L2-L3: Mild disc bulge with spinal stenosis. Moderate right, mild left foraminal narrowing with facet and ligamentum flavum hypertrophy. L3-L4: Mild disc bulge with moderate spinal stenosis. [id number] bilateral foraminal narrowing with facet and ligamentum flavum hypertrophy. L4-L5: Mild disc bulge without spinal stenosis. Moderate left and mild right foraminal with facet and ligamentum flavum hypertrophy. L5-S1: Mild disc bulge with mild spinal stenosis. Severe and moderate to severe right foramen narrowing with mild flattening of the exiting L5 nerve root. Facet and ligamentum flavum hypertrophy is present. IMPRESSION: Multilevel disc bulges and spinal stenosis. Multilevel foraminal narrowing most severe at L5-S1 the surrounding the left exiting nerve. Dictated by: Lityz Ball M.D. on 02/24/2025 at 16:25 Approved by: Litzy Ball M.D. on 02/24/2025 at 16:33
--- NOTE | 2025-02-23 23:06 | DI.MRI.S_ITS ---
PROCEDURE: MR THORACIC SPINE WO/W CON INDICATIONS: left leg weakness TECHNIQUE: Noncontrast sagittal T1 spin echo and T2 fast spin echo, sagittal STIR, axial T1 and T2 fast spin echo through the thoracic spine. After the administration of contrast, axial and sagittal T1 spin echo with fat saturation through the thoracic spine. COMPARISON: [facility], MR, MR CERVICAL SPINE WO/W CON, 02/24/2025, 14:23. [facility], MR, MR LUMBAR SPINE WO/W CON, 02/24/2025, 14:23. FINDINGS: Image quality: Excellent. Alignment and curvature: There is normal bony alignment. Marrow: Marrow is of normal overall signal. No acute vertebral body compression fractures. Spinal cord: Visualized spinal cord is of normal signal and size, without abnormal enhancement. Paraspinous soft tissues: No paravertebral masses or abnormal enhancement. Miscellaneous: Central canal and foramina appear widely patent at all scanned levels. Posterior central protrusion at T5-6, T6-7 mild bulge at T7-T8, , T10-11. IMPRESSION: Scattered disc bulges and protrusions. Dictated by: Litzy Ball M.D. on 02/24/2025 at 16:33 Approved by: Litzy Ball M.D. on 02/24/2025 at 16:40
--- NOTE | 2025-02-23 23:06 | DI.MRI.S_ITS ---
PROCEDURE: MR HEAD/BRAIN WO/W CON INDICATIONS: left leg weakness TECHNIQUE: Noncontrast axial T1 spin echo, axial T2 fast spin echo, sagittal and axial FLAIR, coronal T2 fast spin echo, axial gradient echo, axial diffusion and ADC through the brain. After the administration of contrast, axial and coronal and sagittal T1 spin echo with fat saturation through the brain. COMPARISON: None. FINDINGS: Image quality: Excellent. CSF spaces: Basal cisterns are patent. No extra-axial fluid collections. Ventricles are normal in size and shape. Brain: No midline shift. No intracranial bleeds or masses. No abnormal intracranial enhancement. There is cerebral volume loss for age. There is periventricular white matter chronic small vessel ischemic change. The brainstem appears normal. Diffusion-weighted images demonstrate 4 punctate areas hyperintensity in the right frontal lobe with corresponding hypointense ADC signal. Punctate hyperdensity in the cyst posterior most aspect the posterior right parietal lobe.. No chronic ischemic insults. Normal intravascular flow voids are present. Skull and face: Calvarial marrow is normal in signal. Orbits appear normal. Sinuses: Sinuses and mastoids appear clear. IMPRESSION: 1. Punctate areas restricted diffusion in the frontal lobe most consistent with acute/subacute ischemia. Focus at the posterior right parietal lobe. Secondary to location and size this is difficult to discern an additional focus of subacute ischemia versus artifact. 2. Moderate atrophy and chronic microvascular ischemic changes. Dictated by: Litzy Ball M.D. on 02/24/2025 at 17:00 Approved by: Litzy Ball M.D. on 02/24/2025 at 17:02
[2025-02-24] VITALS (9 sets, daily range): BP systolic 110–169; BP diastolic 49–79; PULSE 68–93; RESP 17–21; TEMP 36.4–36.9; O2SAT 93–97; BMI 31.5
[2025-02-24] MEDS: SODIUM CHLORIDE 0.9% 1,000 ML 75 ML IV (02:12)
[2025-02-24 03:06] LABS: MRSA (Nasal) PCR NOT DETECTED (Not Detect)
[2025-02-24 03:19] LABS: Appearance Urine UA CLEAR; Bilirubin Urine UA NEGATIVE (NEGATIVE); Color Urine UA YELLOW; Glucose Urine UA NEGATIVE (Negative); Ketones Urine UA TRACE (NEGATIVE); Leukocyte Esterase Urine UA NEGATIVE (NEGATIVE); Nitrite Urine UA NEGATIVE (Negative); Occult Blood Urine UA NEGATIVE (Negative); Protein Urine UA NEGATIVE (Negative); Urobilinogen Urine UA 0.2 E.U./dL (0.2); pH Urine UA 6.5 (4.5-8.0)
[2025-02-24 03:25] LABS: Bacteria Urine None Seen; Culture Indicated Urine Cult Not Indicated; RBC Urine None Seen (0-5/HPF); Squamous Epithelial Cell Urine 0-1 /HPF (0-5/HPF); Ur Creatinine Normal (Normal); Ur Specific Gravity Normal (Normal); Urine Amphetamines Negative (Negative); Urine Barbiturates Negative (Negative); Urine Benzodiazepines Negative (Negative); Urine Cocaine Negative (Negative); Urine MDMA Negative (Negative); Urine Methadone Negative (Negative); Urine Opiates Negative (Negative); Urine Oxycodone Negative (Negative); Urine Phencyclidine Negative (Negative); Urine THC Negative (Negative); Urine Tricyclic Antidepressant Negative (Negative); Urine Volume 10mL (spun); Urine pH Normal (Normal); WBC Urine None Seen (0-5/HPF)
--- NOTE | 2025-02-24 03:29 | P.HP_ITS ---
History of Present Illness History of Present Illness Chief complaint: Left leg weakness Narrative: 74-year-old male with past medical history of hypertension and diabetes presents with complaint of acute onset of left leg weakness.? Per the patient's report, around 6 PM today, the patient started to have acute onset of left leg weakness.? Today the patient had a mole in the cyst superficial part of his left leg that was removed.? The patient states that he walked out of the office fine and did not have any issue.? However when he got home this evening around 6 PM he noticed the acute onset of weakness.? The patient however denies any numbness or any abnormal sensation to his left leg.? Denies any headache or in lower back pain.? The patient also denies any slurred speech, facial drooping, or any other focal weakness. In the emergency room, the patient was hemodynamically stable.? NIH was reported to be 3.? On exam per our ER physician the patient does have signs of weakness in his left leg but no other focal finding.? CT scan of the head and neck with angiography showed and without contrast shows no acute finding.? Neurostroke was also consulted and think that this could be due to peripheral rather than central nervous system.? Recommended MRI of the low back.? Of note spinous surgeon was also contacted who agree with plan with that MRI.? Of note CT scan of the lower lumbar spine also negative.? The patient weakness was slightly improved per ER physician after reassessment. [facility] Medical History (Updated 02/23/25 @ 22:49 by Humberto Zhou DO) Hypertension Social History household members: spouse Smoking Status: Former smoker alcohol intake: current Meds Home Medications and Allergies Home Medications ?Medication ?Instructions ?Recorded ?Confirmed ?Type amlodipine 10 mg tablet 10 mg PO DAILY 02/24/25 06/2 0 History blood sugar diagnostic (OneTouch 02/24/25 02/24/25 [employer] Verio test strips) blood-glucose meter (True Metrix 02/24/25 02/24/25 [employer] Glucose Meter) chlorthalidone 25 mg tablet 25 mg PO DAILY 02/24/25 History cholecalciferol (vitamin D3) 125 5,000 unit PO DAILY P RN vitamin 02/24/25 02/24/25 History mcg (5,000 unit) tablet replacement ferrous gluconate 324 mg (37.5 mg 324 mg PO BEDTIME 02/24/25 History iron) tablet hydrocodone-acetaminophen .ROUTE 02/24/25 History ibuprofen 800 mg tablet 800 mg PO 3XD PRN pain 02/2402/24/25 History lisinopril 40 mg tablet 40 mg PO DAILY 02/24/2502/06 History lovastatin 20 mg tablet 20 mg PO DAILY 02/24/2502/06 History metformin 500 mg tablet 1,000 mg PO BID 02/24/25 History metoprolol succinate 100 mg 100 mg PO BID 02/24/25 History tablet,extended release 24 hr jeqadwit-jxy-lqzzg acid 0.4 1 tab PO DAILY 02/24/25 History mg-lycopene 300 mcg-lutein 250 mcg tablet (Centravites 50 Plus) oxycodone 30 mg tablet 30 mg PO TID PRN pain, sever e 02/24/25 02/24/25 History pantoprazole 40 mg tablet,delayed 40 mg PO BID 5 02/24/25 History release potassium chloride 20 mEq 20 meq PO BID 02/24/2502/24 History tablet,extended release pregabalin 150 mg capsule 150 mg PO BID 02/24/2502/24 History semaglutide 0.25 mg or 0.5 mg (2 0.5 mg SUBCUT WEEKLY 02/24/25 02/24/25 History mg/3 mL) subcutaneous pen injector (RacerTimesempic) Allergies Allergy/AdvReac Type Severity Reaction Status Date / Time fluconazole Allergy Unknown Verified 02/24/25 01:10 Review of Systems Review of Systems ROS: Yes All systems reviewed with the patient and are negative except as otherwise documented Exam Vital Signs (past 8 hours): - 02/23/25 20:48 02/23/25 20:48 02/23/25 20:53 Temperature 97.8 F Pulse Rate 72 73 Respiratory Rate 20 Blood Pressure 213/88 H 213/88 H Pulse Oximetry 97 96 Oxygen Delivery Method Room Air 02/23/25 21:13 02/23/25 21:14 02/23/25 21:14 Temperature Pulse Rate 72 72 Respiratory Rate 23 Blood Pressure 179/109 H Pulse Oximetry 96 Oxygen Delivery Method 02/23/25 21:30 02/23/25 22:01 02/23/25 22:10 Temperature Pulse Rate 72 69 Respiratory Rate 27 H Blood Pressure 180/79 H Pulse Oximetry 96 96 Oxygen Delivery Method 02/23/25 22:10 02/23/25 22:15 02/23/25 22:15 Temperature Pulse Rate 70 70 Respiratory Rate 13 15 Blood Pressure 188/80 H Pulse Oximetry 96 98 Oxygen Delivery Method 02/23/25 22:20 02/23/25 22:20 02/23/25 22:30 Temperature Pulse Rate 68 68 Respiratory Rate 21 22 Blood Pressure 170/72 H Pulse Oximetry 96 96 Oxygen Delivery Method Room Air 02/23/25 23:00 02/24/25 01:30 Temperature Pulse Rate 70 Respiratory Rate 21 Blood Pressure Pulse Oximetry 97 Oxygen Delivery Method Room Air Room Air Oxygen Delivery Method Room Air Narrative Exam Narrative: Physical Exam: GENERAL: The patient is not in any acute distressed. Awake and alert. HEENT: Nonicteric sclerae, PERRLA, EOMI. Oropharynx clear. Moist mucous membranes. Conjunctivae appear well perfused. HEART: Regular rate and rhythm without murmurs. No lower extremities edema. LUNGS: Clear to auscultation bilaterally. No wheezing, crackles or rhonchi ABDOMEN: Soft, positive bowel sounds, nontender. SKIN: No rash, no excessive bruising, petechiae, or purpura. NEUROLOGIC: AxO x 3. left leg 4/5 weakness but otherwise no other weakness. Cranial nerves II-XII intact without motor/sensory deficit. Objective Labs 02/23/25 21:45 02/23/25 21:45 Labs: Laboratory Results - last 24 hr 02/23/25 02/24/25 02/24/25 21:45 01:27 03:06 WBC 9.2 RBC 5.04 Hgb 14.6 Hct 42.5 MCV 84.4 MCH 28.9 MCHC 34.3 RDW 14.3 Plt Count 217 Neut % (Auto) 54.6 Lymph % (Auto) 25.6 [place] % (Auto) 9.3 Eos % (Auto) 9.5 H Baso % (Auto) 1.0 Neut # (Auto) 5000 Lymph # (Auto) 2300 [place] # (Auto) 900 Eos # (Auto) 900 H Baso # (Auto) 100 PT 11.6 INR 1.0 APTT 40 H Sodium 136 L Potassium 3.7 Chloride 98 Carbon Dioxide 30 BUN 19 Creatinine 0.95 Estimated GFR > 60 BUN/Creatinine Ratio 20.0 Glucose 89 Calcium 9.7 Magnesium 1.8 Total Bilirubin 0.5 AST 31 ALT 30 Alkaline Phosphatase 78 Total Creatine Kinase 101 Troponin I 0.013 Total Protein 7.2 Albumin 4.5 Globulin 2.7 Albumin/Globulin Ratio 1.7 Urine Color Yellow Urine Appearance Clear Urine pH 6.5 Ur Specific [place] 1.010 Urine Protein Negative Urine Glucose (UA) Negative Urine Ketones Trace H Urine Occult Blood Negative Urine Nitrate Negative Urine Bilirubin Negative Urine Urobilinogen 0.2 Ur Leukocyte Esterase Negative Urine RBC None seen Urine WBC None seen Ur Squamous Epith Cells 0-1 /hpf Urine Bacteria None seen Ur Culture Indicated? Cult not indicated Vol Urine Centrifuged 10ml (spun) Nasal Screen MRSA (PCR) Not detected U Opiates 300ng/mL cut Negative Ur Oxycodone Screen Negative Urine Methadone Screen Negative Ur Barbiturates Screen Negative U Tricyclic Antidepress Negative Ur Phencyclidine Scrn Negative Ur Amphetamines Screen Negative U Methamphetamines Scrn Negative Ur MDMA Scrn (Ecstasy) Negative U Benzodiazepines Scrn Negative Urine Cocaine Screen Negative U Marijuana (THC) Screen Negative Urine Specific [place] Ethyl Alcohol < 10 Ur Creatinine 02/24/25 03:06 WBC RBC Hgb Hct MCV MCH MCHC RDW Plt Count Neut % (Auto) Lymph % (Auto) [place] % (Auto) Eos % (Auto) Baso % (Auto) Neut # (Auto) Lymph # (Auto) [place] # (Auto) Eos # (Auto) Baso # (Auto) PT INR APTT Sodium Potassium Chloride Carbon Dioxide BUN Creatinine Estimated GFR BUN/Creatinine Ratio Glucose Calcium Magnesium Total Bilirubin AST ALT Alkaline Phosphatase Total Creatine Kinase Troponin I Total Protein Albumin Globulin Albumin/Globulin Ratio Urine Color Urine Appearance Urine pH Normal Ur Specific [place] Urine Protein Urine Glucose (UA) Urine Ketones Urine Occult Blood Urine Nitrate Urine Bilirubin Urine Urobilinogen Ur Leukocyte Esterase Urine RBC Urine WBC Ur Squamous Epith Cells Urine Bacteria Ur Culture Indicated? Vol Urine Centrifuged Nasal Screen MRSA (PCR) U Opiates 300ng/mL cut Ur Oxycodone Screen Urine Methadone Screen Ur Barbiturates Screen U Tricyclic Antidepress Ur Phencyclidine Scrn Ur Amphetamines Screen U Methamphetamines Scrn Ur MDMA Scrn (Ecstasy) U Benzodiazepines Scrn Urine Cocaine Screen U Marijuana (THC) Screen Urine Specific [place] Normal Ethyl Alcohol Ur Creatinine Normal Assessment & Plan Assessment & Plan narrative: Acute onset of left leg weakness.? Admit the patient to medical telemetry under observation.? Of note CT scan of the head and neck with and without contrast shows no acute finding. s/p IV steroids given in ER.? Lumbar spine CTs also shows no acute finding.? Per both neurostroke and spine surgeon the recommendation is admit the patient for PT OT and to monitor overnight.? To obtain brain MRI and lumbar's and thoracic MRI in the morning.? Continue to monitor patient closely. Hypertension.? Monitor blood pressure and treat accordingly. Diabetes.? Glucose 110s. Will monitor glucose for now and treat if needed. Hold home metofromin. CODE STATUS full code. DVT prophylaxis heparin subcu. Disposition likely home in 1 to 2 days. - As the provider of this telehealth evaluation, requested by the patient's evaluating physician, I attest that I introduced myself to the patient, provided my credentials and determined that telemedicine via a real-time, 2 way interactive audio and video platform is an appropriate and effective means of providing this service. - I reviewed the patient's chart and had a discussion with the member of the patient's treatment team. - The patient and I mutually agreed with continuation of this evaluation via telemedicine. The patient consented for the telemedicine evaluation. - This virtual encounter was taken place from [place] by Dr. David Villanueva. The patient was evaluated at [facility]. The encounter was approximately 35 minutes. The nurse was present during the entire time of the encounter and was able to move the stethoscope in appropriate directions. Time-Based Coding :: [TOTAL MINUTES] spent with patient and on the chart (including review of chart, obtaining history, exam, reviewing outside data, placing orders, documenting exam and treatment plan, and counseling patient) on [DATE]. Quality VTE Deep Vein Thrombosis/Pulmonary Embolism Present on Admission: No
[2025-02-24 05:10] LABS: Add Manual Diff / Slide Review NO; Basophils Absolute Auto 100 /uL (0-100); Basophils Percent Auto 0.6 % (0-2); Eosinophils Absolute Auto 0 /uL (0-450); Eosinophils Percent Auto 0.3 % (2-4); Hematocrit 45.2 % (41-53); Hemoglobin 15.3 g/dL (13.5-17.5); Lymphocytes Absolute Auto 1300 /uL (1100-4500); Lymphocytes Percent Auto 11.7 % (25-40); Mean Corpuscular HGB Conc 33.8 % (30-36); Mean Corpuscular Hemoglobin 28.5 PG (26-34); Mean Corpuscular Volume 84.3 fL (80-100); Monocytes Absolute Auto 100 /uL (0-900); Monocytes Percent Auto 1.1 % (3-14); Neutrophils Absolute Auto 9500 /uL (1500-7000); Neutrophils Percent Auto 86.3 % (50-75); Platelet Count 212 X10^3/uL (150-400); Red Blood Cell Count 5.37 X10^6/uL (4.5-5.9); Red Cell Distribution Width 14.6 % (11.6-14.8); White Blood Cell Count 11.1 X10^3/uL (4.5-11.0)
--- NOTE | 2025-02-24 05:12 | PC.WOUNDPHOT ---
Left lower extremity, medial of upper calf. Incision measuring 2.5 cm with 3 stitches from outpatient mole removal procedure done 02/23/2025.
[2025-02-24 05:21] LABS: BUN Creatinine Ratio 19.8 (6-22); Blood Urea Nitrogen 17 mg/dL (9-20); Calcium 9.8 mg/dL (8.4-10.2); Carbon Dioxide 25 mmol/L (22-32); Chloride 100 mmol/L (98-107); Estimated Glomerular Filt Rate > 60 mL/min (>60); Glucose 147 mg/dL (70-99); HEMOLYSIS < 15 (0-50); Potassium 3.7 mmol/L (3.4-5.1); Sodium 137 mmol/L (137-145)
--- NOTE | 2025-02-24 08:34 | DI.MRI.S_ITS ---
PROCEDURE: MR CERVICAL SPINE WO/W CON INDICATIONS: left leg weakness, r/o cervical myelopathy TECHNIQUE: Noncontrast sagittal T1 spin echo and T2 fast spin echo, sagittal STIR, foraminal oblique sagittal T2 fast spin echo, axial gradient echo or T2 fast spin echo through the cervical spine. After the administration of contrast, axial and sagittal T1 spin echo with fat saturation through the cervical spine. COMPARISON: None. FINDINGS: Image quality: Excellent. Alignment and curvature: There is normal bony alignment. ACDF of C5 through C7. Marrow: Marrow is normal in overall signal, without suspicious enhancement. Spinal cord: Visualized spinal cord has normal size and signal. No cerebellar tonsillar herniation. No abnormal intramedullary enhancement. Paraspinous soft tissues: No paravertebral masses or suspicious enhancement. C2-3: Normal appearance. C3-4: Disc bulge, resulting in mild spinal canal narrowing and effacement of the anterior cord. C4-5: Disc osteophyte complex causing severe spinal canal narrowing. Moderate bilateral neural foraminal narrowing. C5-6: Osseous fusion of the disc. There is left-sided uncovertebral hypertrophy. C6-7: Osseous fusion of the disc. C7-T1: Disc osteophyte complex causing moderate spinal canal narrowing. IMPRESSION: ACDF of C5 through C7, without complication. Severe spinal canal narrowing at C4-5, with associated moderate bilateral neural foraminal narrowing due to disc osteophyte complex. Mild spinal canal narrowing at C3-4 and moderate spinal canal narrowing at C7-T1. Dictated by: Vivek Lyles M.D. on 02/24/2025 at 17:56 Approved by: Vivek Lyles M.D. on 02/24/2025 at 17:59
[2025-02-24] MEDS: PANTOPRAZOLE DR 40 MG TABLET PO (08:35)
[2025-02-24] MEDS: CHLORTHALIDONE 25 MG TABLET PO (08:35)
[2025-02-24] MEDS: PREGABALIN 75 MG CAPSULE 150 MG PO ×2 (08:35→20:06)
[2025-02-24] MEDS: AMLODIPINE 5 MG TABLET 10 MG PO (08:36)
[2025-02-24] MEDS: HEPARIN 5,000 UNIT/ML VIAL 5000 UNIT SUBCUT (08:36)
[2025-02-24] MEDS: POTASSIUM CHLORIDE 20 MEQ TAB PO ×2 (08:36→20:07)
[2025-02-24] MEDS: lisinopriL 20 MG TABLET 40 MG PO (08:37)
[2025-02-24] MEDS: MULTIVITAMIN 1 TABLET 1 TAB PO (08:37)
[2025-02-24] MEDS: METOPROLOL ER 50 MG TABLET PO (08:37)
[2025-02-24] MEDS: ATORVASTATIN 20 MG TABLET 10 MG PO (08:37)
--- NOTE | 2025-02-24 10:25 | OT.IPNOTE ---
Per hospitalist okay to hold therapy evals until after results of thoracic and lumbar MRI's.
--- NOTE | 2025-02-24 13:01 | PT-IP ANOTE ---
PT eval order received and EMR reviewed. per hospitalist during rounds meeting: hold PT eval pending MRI result. will f/u
--- NOTE | 2025-02-24 13:29 | PM.PN.IH.1 ---
Subjective Subjective Date Patient Seen: 02/24/25 Time Patient Seen: 08:21 Interval history: Narrative: 74-year-old male with past medical history of hypertension and diabetes presents with complaint of acute onset of left leg weakness.? Per the patient's report, around 6 PM today, the patient started to have acute onset of left leg weakness.? Today the patient had a mole in the cyst superficial part of his left leg that was removed.? The patient states that he walked out of the office fine and did not have any issue.? However when he got home this evening around 6 PM he noticed the acute onset of weakness.? The patient however denies any numbness or any abnormal sensation to his left leg.? Denies any headache or in lower back pain.? The patient also denies any slurred speech, facial drooping, or any other focal weakness. In the emergency room, the patient was hemodynamically stable.? NIH was reported to be 3.? On exam per our ER physician the patient does have signs of weakness in his left leg but no other focal finding.? CT scan of the head and neck with angiography showed and without contrast shows no acute finding.? Neurostroke was also consulted and think that this could be due to peripheral rather than central nervous system.? Recommended MRI of the low back.? Of note spinous surgeon was also contacted who agree with plan with that MRI.? Of note CT scan of the lower lumbar spine also negative.? The patient weakness was slightly improved per ER physician after reassessment. Subjective: 02/24: Patient reports persistent left leg weakness, unable to lift it off the bed. He states before 5:00 p.m. yesterday he had normal strength. No arm weakness, back pain or bowel or bladder dysfunction Exam Vital Signs (past 8 hours): - 02/24/25 05:42 02/24/25 07:00 02/24/25 08:40 Temperature 97.8 F 98.3 F Pulse Rate 87 88 Respiratory Rate 17 17 Blood Pressure 112/55 L 115/56 L Pulse Oximetry 93 95 Oxygen Delivery Method Room Air Oxygen Flow Rate 0 02/24/25 09:07 02/24/25 12:31 Temperature 97.8 F Pulse Rate 85 82 Respiratory Rate 21 Blood Pressure 110/68 140/63 Pulse Oximetry 93 Oxygen Delivery Method Oxygen Flow Rate 0 Oxygen Delivery Method Room Air Oxygen Flow Rate 0 Narrative Exam Narrative: Physical Exam: GENERAL: The patient is not in any acute distressed. Awake and alert. HEENT: Nonicteric sclerae, PERRLA, EOMI. Oropharynx clear. Moist mucous membranes. Conjunctivae appear well perfused. HEART: Regular rate and rhythm without murmurs. No lower extremities edema. LUNGS: Clear to auscultation bilaterally. No wheezing, crackles or rhonchi ABDOMEN: Soft, positive bowel sounds, nontender. SKIN: No rash, no excessive bruising, petechiae, or purpura. NEUROLOGIC: AxO x 3. left leg 3/5 weakness but otherwise no other weakness. Cranial nerves II-XII intact without motor/sensory deficit. 2+ patellar and Achilles reflexes bilaterally. Normal upper extremity strength. Objective Imaging *: Radiologist's impression: 1. Brain CT 02/23/2025: 1. CT head without acute intracranial abnormalities or acute calvarial fractures. 2. Age-related senescent changes and sequela of chronic small vessel ischemic disease. 2. Head/neck CTA 02/23/2025: No significant intracranial arterial abnormality is seen. No significant abnormality is seen within the arteries of the neck. Status post ACDF of C5 through C7 with severe spinal canal stenosis at C5 and C6 Mild left maxillary and right sphenoid sinus disease. If there is persistent or high clinical suspicion for acute cerebrovascular ischemia/stroke, more sensitive evaluation with brain MRI can be considered. 3. Lumbar spine CT 02/23/2025: Lumbar spine without acute osseous abnormalities or traumatic malalignment. Severe multilevel, multifactorial lumbar spondylosis with severe spinal canal stenosis noted at L2-3, L3-4, and moderate-severe stenosis at L4-5. There are variable degrees of at least moderate bilateral neuroforaminal stenosis throughout the lumbar spine. Labs 02/24/25 04:50 02/24/25 04:50 Labs: Laboratory Results - last 24 hr 02/23/25 02/24/25 02/24/25 21:45 01:27 03:06 WBC 9.2 RBC 5.04 Hgb 14.6 Hct 42.5 MCV 84.4 MCH 28.9 MCHC 34.3 RDW 14.3 Plt Count 217 Neut % (Auto) 54.6 Lymph % (Auto) 25.6 Long % (Auto) 9.3 Eos % (Auto) 9.5 H Baso % (Auto) 1.0 Neut # (Auto) 5000 Lymph # (Auto) 2300 Long # (Auto) 900 Eos # (Auto) 900 H Baso # (Auto) 100 PT 11.6 INR 1.0 APTT 40 H Sodium 136 L Potassium 3.7 Chloride 98 Carbon Dioxide 30 BUN 19 Creatinine 0.95 Estimated GFR > 60 BUN/Creatinine Ratio 20.0 Glucose 89 Calcium 9.7 Magnesium 1.8 Total Bilirubin 0.5 AST 31 ALT 30 Alkaline Phosphatase 78 Total Creatine Kinase 101 Troponin I 0.013 Total Protein 7.2 Albumin 4.5 Globulin 2.7 Albumin/Globulin Ratio 1.7 Urine Color Yellow Urine Appearance Clear Urine pH 6.5 Ur Specific [place] 1.010 Urine Protein Negative Urine Glucose (UA) Negative Urine Ketones Trace H Urine Occult Blood Negative Urine Nitrate Negative Urine Bilirubin Negative Urine Urobilinogen 0.2 Ur Leukocyte Esterase Negative Urine RBC None seen Urine WBC None seen Ur Squamous Epith Cells 0-1 /hpf Urine Bacteria None seen Ur Culture Indicated? Cult not indicated Vol Urine Centrifuged 10ml (spun) Nasal Screen MRSA (PCR) Not detected U Opiates 300ng/mL cut Negative Ur Oxycodone Screen Negative Urine Methadone Screen Negative Ur Barbiturates Screen Negative U Tricyclic Antidepress Negative Ur Phencyclidine Scrn Negative Ur Amphetamines Screen Negative U Methamphetamines Scrn Negative Ur MDMA Scrn (Ecstasy) Negative U Benzodiazepines Scrn Negative Urine Cocaine Screen Negative U Marijuana (THC) Screen Negative Urine Specific [place] Ethyl Alcohol < 10 Ur Creatinine 02/24/25 02/24/25 03:06 04:50 WBC 11.1 H RBC 5.37 Hgb 15.3 Hct 45.2 MCV 84.3 MCH 28.5 MCHC 33.8 RDW 14.6 Plt Count 212 Neut % (Auto) 86.3 H D Lymph % (Auto) 11.7 L Long % (Auto) 1.1 L Eos % (Auto) 0.3 L Baso % (Auto) 0.6 Neut # (Auto) 9500 H Lymph # (Auto) 1300 Long # (Auto) 100 Eos # (Auto) 0 Baso # (Auto) 100 PT INR APTT Sodium 137 Potassium 3.7 Chloride 100 Carbon Dioxide 25 BUN 17 Creatinine 0.86 Estimated GFR > 60 BUN/Creatinine Ratio 19.8 Glucose 147 H Calcium 9.8 Magnesium Total Bilirubin AST ALT Alkaline Phosphatase Total Creatine Kinase Troponin I Total Protein Albumin Globulin Albumin/Globulin Ratio Urine Color Urine Appearance Urine pH Normal Ur Specific [place] Urine Protein Urine Glucose (UA) Urine Ketones Urine Occult Blood Urine Nitrate Urine Bilirubin Urine Urobilinogen Ur Leukocyte Esterase Urine RBC Urine WBC Ur Squamous Epith Cells Urine Bacteria Ur Culture Indicated? Vol Urine Centrifuged Nasal Screen MRSA (PCR) U Opiates 300ng/mL cut Ur Oxycodone Screen Urine Methadone Screen Ur Barbiturates Screen U Tricyclic Antidepress Ur Phencyclidine Scrn Ur Amphetamines Screen U Methamphetamines Scrn Ur MDMA Scrn (Ecstasy) U Benzodiazepines Scrn Urine Cocaine Screen U Marijuana (THC) Screen Urine Specific [place] Normal Ethyl Alcohol Ur Creatinine Normal [facility] Medical History (Updated 02/23/25 @ 22:49 by Humberto Zhou DO) Hypertension Social History household members: spouse Smoking Status: Former smoker alcohol intake: current Assessment & Plan Assessment & Plan narrative: 1. Acute onset of left leg weakness.? Admit the patient to medical telemetry under observation.? Of note CT scan of the head and neck with and without contrast shows no acute finding. s/p IV steroids given in ER.? Lumbar spine CTs also shows no acute finding.? Per both neurostroke and spine surgeon the recommendation is admit the patient for PT OT and to monitor overnight.? To obtain brain MRI and lumbar's and thoracic MRI in the morning as well as cervical MRI.? Continue to monitor patient closely. 2. Hypertension.? Monitor blood pressure and treat accordingly. 3. Diabetes.? Glucose 110s. Will monitor glucose for now and treat if needed. Hold home metformin. CODE STATUS full code. DVT prophylaxis heparin subcu. Disposition likely home in 1 to 2 days. Quality VTE Deep Vein Thrombosis/Pulmonary Embolism Present on Admission: No IH PROFEE [employer] Specialist Document charge(s): No Charge Codes Subsequent inpatient/observation care: [id number]
--- NOTE | 2025-02-24 13:59 | CM.DANOTE ---
DCP Assessment Note: Pt is a 74yo male, resident of [place], is admitted for left leg weakness. Pt lives in a house with his , Kristan. Pt's Primary Care Provider is Dr. Humberto Castellanos and insurance is [employer]. Reviewed chart and discussed with multidisciplinary team pt's medical status and initial discharge needs. DCP met w/patient at bedside; introduced self and role. Patient was found in bed, alert and oriented, cooperative with assessment. Pt confirmed living situation and good support in . Pt expressed preference in discharge home when cleared, I want to find out what happened. Pt stated concerns that this might be related to a neck fusion completed in 2015 or other L&I related injuries tracing back to 2001. Pt has a hx of SNF Rehab at [facility] after a partial knee replacement in 2023. No home health history. Pt agreeable to working with therapies and following their recommendations after MRIx3 on 02/24. Plan: Awaiting PT/OT evaluations after MRI and recommendation for evolving discharge plans. CM team will follow closely for coordination of discharge plans. SCARLET Ardon Discharge Planning/Care Management CM Discharge Assessment Start: 02/24/25 01:44 Freq: Status: Active Protocol: Document 02/24/25 13:57 MW (Rec: 02/24/25 13:59 MW Desktop) Discharge Planning Assessment Assigned Discharge BELKIS Felder [employer] Observer DPOA/Assigned Maddi Rushing Designee Name Contact Information [phone] Advance Directives? No History Provided By Patient Has Patient been No admitted in last 30 days? Prior Living House Arrangements Comment [place] Household Members spouse Type of Drives own vehicle transporation used prior to admit Independent with ADL Yes 's Is patient alert and Yes oriented? Caregiver for No Another DME Already Rented / Nebulizer Owned Discharge Plan Home Transportation Arrangement Whiteboard Updated Yes in Patient Room with name and ext. # of Supervisor [employer]dn[employer] Truck Installation Comment [id number] Review Status In Process Please Provide Date 02/24/25 Initial DC Assessment Was Performed Next Review Type Continued Stay Review
[2025-02-24] MEDS: LORazepam 1 MG TABLET PO (14:17)
--- NOTE | 2025-02-24 17:07 | DI.CT.S_ITS ---
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 Additional oblique axial 3.0 mm sections acquired through the pharynx. 3 mm thick coronal and sagittal reformats were generated. For radiation dose reduction, the following was used: automated exposure control. COMPARISON: [facility], MR, MR CERVICAL SPINE WO/W CON, 02/24/2025, 14:23. FINDINGS: Image quality: Excellent. Lymph nodes: No enlarged lymph nodes seen throughout the neck. Vessels: Visualized vasculature appears patent. Neck spaces: There is slight asymmetry within right lateral posterior oropharynx. However, no distinct area of abnormal enhancement. No fluid collection. Glands: The parotid and submandibular glands appear normal. Thyroid gland is unremarkable. Miscellaneous: Visualized brain and orbits appear normal. Lung apices appear clear. Superficial soft tissues appear normal. Bones: No suspicious bony lesions. Visualized sinuses and mastoids appear unremarkable. IMPRESSION: Nonspecific slight asymmetrical prominence in the right posterior lateral oropharynx. No enhancing mass or fluid collection. This could be positional. If concern persists, direct visualization by ENT is recommended. Dictated by: Litzy Ball M.D. on 02/24/2025 at 18:32 Approved by: Litzy Ball M.D. on 02/24/2025 at 18:35
[2025-02-24] MEDS: ASPIRIN EC 81 MG TABLET PO (17:32)
[2025-02-24] MEDS: METOPROLOL ER 50 MG TABLET 100 MG PO (20:15)
[2025-02-24] MEDS: APIXABAN 5 MG TABLET PO (20:15)
[2025-02-24] MEDS: ATORVASTATIN 20 MG TABLET 80 MG PO (20:17)
[2025-02-24] MEDS: FERROUS SULFATE 325 MG TABLET PO (20:17)
[2025-02-25] VITALS (11 sets, daily range): BP systolic 98–148; BP diastolic 52–86; PULSE 55–82; RESP 17–20; TEMP 36.3–36.6; O2SAT 95–99
[2025-02-25] MEDS: POTASSIUM CHLORIDE 20 MEQ TAB PO ×2 (08:12→21:15)
[2025-02-25] MEDS: PREGABALIN 75 MG CAPSULE 150 MG PO ×2 (08:12→21:14)
[2025-02-25] MEDS: CHLORTHALIDONE 25 MG TABLET PO (08:12)
[2025-02-25] MEDS: ASPIRIN EC 81 MG TABLET PO (08:12)
[2025-02-25] MEDS: PANTOPRAZOLE DR 40 MG TABLET PO ×2 (08:13→21:16)
[2025-02-25] MEDS: ACETAMINOPHEN 325 MG TABLET 650 MG PO (08:13)
[2025-02-25] MEDS: MULTIVITAMIN 1 TABLET 1 TAB PO (08:13)
[2025-02-25] MEDS: APIXABAN 5 MG TABLET PO ×2 (08:13→21:14)
[2025-02-25] MEDS: lisinopriL 20 MG TABLET 40 MG PO (08:13)
[2025-02-25] MEDS: AMLODIPINE 5 MG TABLET 10 MG PO (08:13)
[2025-02-25] MEDS: METOPROLOL ER 50 MG TABLET PO ×2 (08:13→21:15)
[2025-02-25] MEDS: SODIUM CHLORIDE 0.9% FLUSH 10 ML IV ×2 (08:21→21:17)
[2025-02-25] MEDS: HYDROCODONE/ACET 5/325 TABLET 1 TAB PO (11:21)
--- NOTE | 2025-02-25 11:30 | PT.IIE ---
Current Diagnoses Cerebral infarction due to embolism of unspecified cerebral artery (02/23/25) Medical History (Last Reviewed 07/06/19 @ 23:21 by Mary Perry DO) Hypertension Physical Therapy Inpatient Evaluation/Re-Eval M1 PT/OT-IP Prior Functional Status Start: 02/25/25 13:05 Freq: NEEDED Status: Active Protocol: Document 02/25/25 11:30 AB (Rec: 02/25/25 13:18 AB Desktop) Medical Review Prior Functional Status Medical History Yes Reviewed Communication able to make needs known Mobility and Gait pt stated that he was independent with all mobilities and ambulation without AD Social History Household Members spouse Living Arrangements House Number of Floors ( One Floor Floors) Number of Stairs To no steps to enter Enter/Railing? Home Environment Standard Height Toilet,Walk in Shower Home Equipment Four Wheel Walker,Straight Cane,Shower Seat with Backrest,Hand Held Shower,Grab Bars In Shower M2 PT-IP Current Condition Start: 02/25/25 13:05 Freq: NEEDED Status: Active Protocol: Document 02/25/25 11:30 AB (Rec: 02/25/25 13:18 AB Desktop) Physical Therapy Current Condition Current Condition Evaluation Date 02/25/25 Treatment Diagnosis CVA; difficulty in walking Onset Date 02/23/25 M3 PT-IP Subjective Start: 02/25/25 13:05 Freq: NEEDED Status: Active Protocol: Document 02/25/25 11:30 AB (Rec: 02/25/25 13:18 AB Desktop) Subjective Physical Therapy Visit Type Type Initial Evaluation Visit Start Time 11:30 Visit Stop Time 12:00 Number of SCHOOL CUSTODIAN Visits 0 Physical Therapy Visit Comments Patient Comments agreeable to do PT Therapy Pain Assessment Pain When Pain Assessed At Rest Pain Present Pain Present Pain Reported Location Back Intensity 5 Scale Used Numeric (0 - 10) Pain Behaviors Guarding,Holding Area Pain Management Distraction,Modification of Treatment,Re-positioning, Techniques Timing of Activity with Medications M4 PT-IP Mobility and Gait Start: 02/25/25 13:05 Freq: NEEDED Status: Active Protocol: Document 02/25/25 11:30 AB (Rec: 02/25/25 13:18 AB Desktop) PT-Bed Mobility Assessment Supine to Sit Supine to Sit Minimal Assistance PT-Transfer Assessment Sit to and From Stand Sit to and from Maximum Assistance,1 Person Assistance,Use of Upper Stand Extremities Equipment Transfer Assistive Gait Belt,Front Wheeled Walker Device Orthotic/Prosthetic No Devices or Brace: Transfers Transfer Destination Chair Transfer Technique ambulated Transfer Ability Level of Assist Maximum Assistance,1 Person Assistance,2 Person Assistance,Use of Upper Extremities Comments Mobility Comments pt in bed and agreed to do PT. obtained PLOF and home setup. BP: 125/57. completed supine to sit min A for moving LLE. able to sit on EOB CGA to occasional min A. has tendency to drift backwards and needed cues and assist to re-center . sit to stand max A and max cues. able to ambulate ~ 3 ft using FWW max A x 1-2 and max cues. needed assist to stabilize LLE. increase retrolean and lateral leaning to the L needing assist to re-align. pt sat on chair. positioned pt on the chair. call light and table placed within reach. Informed pt regarding acute rehab and pt agreed. informed skilled nursing case manager. Gait Assessment Gait Gait Assistance Maximum Assistance,1 Person Assist,2 Person Assist Required: Distance (Feet) 3 Able to Maintain Yes Weight Bearing Status During Gait Assistive Devices Assistive Device Gait Belt,Front Wheeled Walker Orthotic/Prosthetic No Devices or Brace: Gait Deviations General Gait Pattern Decreased Stride Length,Decreased Feet Clearance,Step- to Gait,Wide Based Gait Factors Limiting Gait Function Factors Limiting Decreased Activity Tolerance,Decreased Sensation, Gait Function Decreased Strength,Difficulty Following Directions, Incoordination,Limited Range of Motion,Pain,Poor Balance,Poor Safety Awareness PT-Balance Assessment Sitting Balance and Reactions Static Sitting Fair Balance Ability Dynamic Sitting Poor Balance Ability Standing Balance and Reactions Static Standing Poor Balance Ability Dynamic Standing Poor Balance Ability Device Used FWW M5 PT-IP Objective Assessments Start: 02/25/25 13:05 Freq: NEEDED Status: Active Protocol: Document 02/25/25 11:30 AB (Rec: 02/25/25 13:18 AB Desktop) Orientation Orientation/Cognition Level of Alertness Alert Orientation Name,Place,Situation Language Function No Deficits Noted Ability Safety Awareness Decreased Safety Awareness Memory Description No Deficits Noted Gross Range of Motion Lower Extremity ROM Assessment Within Functional Limits Strength Lower Extremity Strength Assessment Left Impaired Hip 3+/5 Knee 3+/5 Ankle 3+/5 Sensation Assessment Sensation Gross Sensation Right LE Impaired,Left LE Impaired Sensation Numbness Description Comments Sensation Comments B feet numbness: chronic per pt due to back issues Muscle Tone Muscle Tone WNL Yes M6 PT-IP Treatment Start: 02/25/25 13:05 Freq: NEEDED Status: Active Protocol: Document 02/25/25 11:30 AB (Rec: 02/25/25 13:18 AB Desktop) Physical Therapy Treatment Exercises Exercises Gluteal Sets Education Education Provided Safety Other Treatments Other Treatment LAQs Performed M7 PT-IP Assessment and Plan Start: 02/25/25 13:05 Freq: NEEDED Status: Active Protocol: Document 02/25/25 11:30 AB (Rec: 02/25/25 13:18 AB Desktop) PT Summary Assessment and Plan Potential Rehabilitation Good Potential Status of Condition Evolving at Evaluation Summary Impairments Pain,ROM,Strength,Balance,Coordination,Sensation,Tone, Cognition,Bed Mobility,Transfers,Gait,Activity Tolerance Assessment Summary pt is a 74 y/o M who presented to the ED with LLE weakness. pt admitted for CVA. pt requiring max A x 1-2 for transfers and ambulation using FWW and needed max A to stabilize LLE. pt will need 24/7 assist and will benefit from acute rehab to improve overall strength and mobility independence. Goals Bed Mobility Goal Standby Assistance Transfer Goal Standby Assistance,Front Wheeled Walker Gait Goal Standby Assistance,Front Wheel Walker Gait Distance 50 Other Goals improve bed mobility, transfers, ambulation using FWW 100 ft SBA Days to Meet Goals 10 Frequency of Treatment Frequency Of Once a Day Treatment Treatment Plan Physical Therapy Bed Mobility Training,Transfer Training,Gait Training, Treatment Plan Therapeutic Exercise,Balance Retraining,Discharge Planning,Hot or Cold Pack,Neuromuscular Re-ed, Coordination Retraining,Manual Therapy Precautions Other Precautions falls Recommendations To Nursing Amount of Assist 2 Person Assist Needed Discharge Recommendations PT Discharge Acute Rehab Recommendations Transportation Needs Wheelchair/Cabulance at Discharge - PT assist 2
--- NOTE | 2025-02-25 14:32 | CM.DPC ---
MNP Acute Rehab Planning: Per MD, MRI showed acute embolic stroke likely cardiac related. Per PT eval, recommending Acute Inpt Rehab at d/c. SW met bedside with pt and explained role and discussed recommendation of Acute Rehab and answered a few questions and provided [facility] [place] to review. Pt confirms he has no Medicare and only [employer] for insurance. Pt states he would consider Acute rehab if insurance auths but requests SW come back in an hour when his arrives bedside. Pt agreeable with Acute rehab referral to [facility] to see if they could accept and have bed availability. SW called [facility] [place] admissions phone and left ms regarding new referral and request for review and secure emailed it to admissions Fermin and his admin Valeriy to review. No OT eval yet as no OT on the w/e. Plan: SW to follow for review by [facility] Acute rehab to confirm they are an option at d/c and further discussion with pt and spouse regarding d/c plan. Faviola Ham, FIRER WATERTENDER
--- NOTE | 2025-02-25 14:36 | PC.NURSE ---
Day shift: This RN arrived at bedside at 1305, MD Jacobo at bedside. She stated patient was diaphoretic, slurring his speech, and felt faint. He was sitting up in the chair after working with PT. IV Bolus started by RN Coy Ramirez. Vital signs quickly improved from SBP in 90s to SBP 114. Patient's color returned to normal, speech clear. He stated he felt much better and denies dizziness or lightheadedness at 1310. This RN and PCT Markus aided patient via Kevin lift in returning back to bed. Pt tolerated well, denies dizziness/SOB, BP 137/61. Will continue to monitor.
--- NOTE | 2025-02-25 14:37 | P.PN_ITS ---
Subjective Subjective Interval history: 74-year-old male with underlying hypertension and diabetes who was admitted with a right sided HETAL multifocal stroke. He had acute onset of left lower extremity weakness on the date of admission. He also has a history of chronic cervical spinal disease. Was placed on aspirin and Eliquis upon his MRI results becoming available. He was evaluated by therapies this morning with recommendation for rehab. Upon my arrival, patient is telling me he had a hydrocodone about 90 minutes ago. He complains of feeling fatigued and dizzy. He also reports he feels febrile. He is notably very pale, diaphoretic, and has slurred speech. Exam Vital Signs (past 8 hours): - 02/25/25 08:00 02/25/25 08:13 02/25/25 12:00 Temperature 97.3 F L 97.5 F L Pulse Rate 65 65 61 Respiratory Rate 19 18 Blood Pressure 119/60 119/60 102/52 L Pulse Oximetry 95 99 02/25/25 13:00 02/25/25 13:05 02/25/25 13:10 Temperature Pulse Rate 56 L Respiratory Rate Blood Pressure 98/57 L 123/58 L 133/61 Pulse Oximetry 02/25/25 13:10 Temperature Pulse Rate 56 L Respiratory Rate Blood Pressure 133/61 Pulse Oximetry Oxygen Delivery Method Room Air Oxygen Flow Rate 0 Narrative Exam Narrative: GEN: Alert and oriented x 3, pale, diaphoretic, slurred speech HEENT:NC, Face symmetric CHEST: Respiratory excursions symmetric, CTAB CV: RRR, no M/R/G ABD: Soft, NT/ND, BT present in all 4 quadrants, no organomegaly or masses EXTR: warm, well perfused, no C/C/E SKIN: warm and dry, no rash NEURO: Alert and oriented x 3, left arm and hand are weak, left leg is flaccid Objective Labs 02/24/25 04:50 02/24/25 04:50 [facility], [facility] Medical History (Updated 02/23/25 @ 22:49 by Humberto Zhou DO) Hypertension Social History household members: spouse Smoking Status: Former smoker alcohol intake: current Assessment & Plan Assessment & Plan narrative: 1. Right HETAL cardioembolic stroke Continue Eliquis and aspirin as well as high-dose statin therapy. 2. Acute neurologic change secondary to hypotension Blood sugar was done and was 155. I did attempt to get a blood pressure and was unable to do so. After 2 attempts I was finally able to get up blood pressure and he was 98/57. We did recline his chair, and initiated an IV fluid bolus. Blood pressure subsequently improved rapidly with simultaneous resolution of his altered neuro findings. His speech returned to normal as did his left arm weakness. With near completion of his IV fluid bolus, his blood pressure was up to 133/61. His acute neuro findings had resolved completely. Suspect the etiology of his symptoms was hypotension. Will plan to hold his chlorthalidone tomorrow, and to decrease his dose of metoprolol to allow for some degree of permissive hypertension. Additionally, I have put holding parameters on his amlodipine and lisinopril. 3. Diabetes mellitus type 2 Overall, blood sugars are reasonably well controlled. 4. Cervical spinal disease He has severe spinal canal narrowing at C4-5 with associated moderate bilateral neural foraminal narrowing due to disc osteophyte complex. There is also mild spinal canal narrowing at C3-4 and moderate spinal canal lumbar spine also reveals multilevel foraminal narrowing most severe at L5-S1 surrounding the left exiting nerve. Code status Full Prophylaxis Eliquis Disposition Will need nursing home for rehab at discharge Time-Based Coding :: [TOTAL MINUTES] spent with patient and on the chart (including review of chart, obtaining history, exam, reviewing outside data, placing orders, documenting exam and treatment plan, and counseling patient) on [DATE]. Quality VTE Deep Vein Thrombosis/Pulmonary Embolism Present on Admission: No
[2025-02-25 17:32] LABS: Hemoglobin A1C% w Est Avg Glu 5.5 % (4.0-6.0)
[2025-02-25] MEDS: FERROUS SULFATE 325 MG TABLET PO (21:14)
[2025-02-25] MEDS: ATORVASTATIN 20 MG TABLET 80 MG PO (21:14)
[2025-02-26] VITALS (9 sets, daily range): BP systolic 95–148; BP diastolic 47–83; PULSE 60–72; RESP 15–20; TEMP 36.2–36.7; O2SAT 93–98
[2025-02-26] MEDS: APIXABAN 5 MG TABLET PO ×2 (08:51→20:26)
[2025-02-26] MEDS: POTASSIUM CHLORIDE 20 MEQ TAB PO ×2 (08:51→20:27)
[2025-02-26] MEDS: PREGABALIN 75 MG CAPSULE 150 MG PO ×2 (08:51→20:27)
[2025-02-26] MEDS: ASPIRIN EC 81 MG TABLET PO (08:51)
[2025-02-26] MEDS: MULTIVITAMIN 1 TABLET 1 TAB PO (08:51)
[2025-02-26] MEDS: SODIUM CHLORIDE 0.9% FLUSH 10 ML IV ×2 (08:53→20:27)
--- NOTE | 2025-02-26 11:19 | PT.IPTN ---
Current Diagnoses Cerebral infarction due to embolism of unspecified cerebral artery (02/23/25) Physical Therapy Treatment Note M2 PT-IP Current Condition Start: 02/25/25 13:05 Freq: NEEDED Status: Active Protocol: Document 02/25/25 11:30 AB (Rec: 02/25/25 13:18 AB Desktop) Physical Therapy Current Condition Current Condition Evaluation Date 02/25/25 Treatment Diagnosis CVA; difficulty in walking Onset Date 02/23/25 M3 PT-IP Subjective Start: 02/25/25 13:05 Freq: NEEDED Status: Active Protocol: Document 02/26/25 10:54 KS (Rec: 02/26/25 13:03 KS [id number]) Subjective Physical Therapy Visit Type Type Treatment Note Visit Start Time 10:54 Visit Stop Time 11:19 Number of [employer] ADMINISTRATOR Visits 1 Physical Therapy Visit Comments Patient Comments agreeable to PT Therapy Pain Assessment Pain When Pain Assessed At Rest M4 PT-IP Mobility and Gait Start: 02/25/25 13:05 Freq: NEEDED Status: Active Protocol: Document 02/26/25 10:54 KS (Rec: 02/26/25 13:03 KS [id number]) PT-Bed Mobility Assessment Supine to Sit Supine to Sit Minimal Assistance Scooting Scooting to Edge of Standby Assistance Bed PT-Transfer Assessment Sit to and From Stand Sit to and from Minimal Assistance,1 Person Assistance,Use of Upper Stand Extremities Equipment Transfer Assistive Gait Belt,Front Wheeled Walker Device Orthotic/Prosthetic No Devices or Brace: Transfers Transfer Destination Chair Transfer Technique ambulated Transfer Ability Level of Assist Moderate Assistance,1 Person Assistance,Use of Upper Extremities Comments Mobility Comments Pt in bed upon arrival and wanting to transfer to chair . Able to complete ther ex in bed prior to mobility. Min A and use of bed rails for sup<>Sit, SBA for scooting EOB. 1x retrolean while sitting EOB, pt able to correct himself. Min A mod cues for sit<>stand w/ Fww. Upon standing pt again leans backwards but was able to correct w/ Min A and cues. Pt able to complete stand step pivot from bed to chair using FWW. Needs mod a for FWW mgmt and sequencing. No knee buckling during transfer. Pt slightly lightheaded after transfer, BP 106/57. Feet elevated and BP 112/65. Pt left in chair w / all needs in reach. Gait Assessment Gait Gait Assistance Moderate Assistance,1 Person Assist Required: Distance (Feet) 3 Able to Maintain Yes Weight Bearing Status During Gait Assistive Devices Assistive Device Gait Belt,Front Wheeled Walker Orthotic/Prosthetic No Devices or Brace: Gait Deviations General Gait Pattern Decreased Stride Length,Decreased Feet Clearance,Step- to Gait,Wide Based Gait Factors Limiting Gait Function Factors Limiting Decreased Activity Tolerance,Decreased Sensation, Gait Function Decreased Strength,Difficulty Following Directions, Incoordination,Limited Range of Motion,Pain,Poor Balance,Poor Safety Awareness PT-Balance Assessment Sitting Balance and Reactions Static Sitting Fair Balance Ability Dynamic Sitting Poor Balance Ability Standing Balance and Reactions Static Standing Poor Balance Ability Dynamic Standing Poor Balance Ability Device Used FWW M5 PT-IP Objective Assessments Start: 02/25/25 13:05 Freq: NEEDED Status: Active Protocol: Document 02/25/25 11:30 AB (Rec: 02/25/25 13:18 AB Desktop) Orientation Orientation/Cognition Level of Alertness Alert Orientation Name,Place,Situation Language Function No Deficits Noted Ability Safety Awareness Decreased Safety Awareness Memory Description No Deficits Noted Gross Range of Motion Lower Extremity ROM Assessment Within Functional Limits Strength Lower Extremity Strength Assessment Left Impaired Hip 3+/5 Knee 3+/5 Ankle 3+/5 Sensation Assessment Sensation Gross Sensation Right LE Impaired,Left LE Impaired Sensation Numbness Description Comments Sensation Comments B feet numbness: chronic per pt due to back issues Muscle Tone Muscle Tone WNL Yes M6 PT-IP Treatment Start: 02/25/25 13:05 Freq: NEEDED Status: Active Protocol: Document 02/26/25 10:54 KS (Rec: 02/26/25 13:03 ME [id number]) Physical Therapy Treatment Exercises Exercises Ankle Pumps,Gluteal Sets,Quad Sets,Heel Slides,Straight Leg Raises Education Education Provided Safety M7 PT-IP Assessment and Plan Start: 02/25/25 13:05 Freq: NEEDED Status: Active Protocol: Document 02/26/25 10:54 KS (Rec: 02/26/25 13:03 ME [id number]) PT Summary Assessment and Plan Potential Rehabilitation Good Potential Summary Impairments Pain,ROM,Strength,Balance,Coordination,Sensation,Tone, Cognition,Bed Mobility,Transfers,Gait,Activity Tolerance Progress Towards Progressing Toward Goals Goals Assessment Summary Pt requiring less assistance overall today and is highly motivated but still limited by decreased function/strength in LLE, low BP, and low activity tolerance. SBA to min A for bed mobility, Nirav for sit< >stand w/ FWW and Mod A for stand step pivot transfer. Did not increase gait distance due to symptomatic low BP. RN informed. Pt will need 24/7 assist and will benefit from acute rehab to improve overall strength and mobility independence. Goals Bed Mobility Goal Standby Assistance Transfer Goal Standby Assistance,Front Wheeled Walker Gait Goal Standby Assistance,Front Wheel Walker Gait Distance 50 Other Goals improve bed mobility, transfers, ambulation using FWW 100 ft SBA Days to Meet Goals 10 Frequency of Treatment Frequency Of Once a Day Treatment Treatment Plan Physical Therapy Bed Mobility Training,Transfer Training,Gait Training, Treatment Plan Therapeutic Exercise,Balance Retraining,Discharge Planning,Hot or Cold Pack,Neuromuscular Re-ed, Coordination Retraining,Manual Therapy Precautions Other Precautions falls Recommendations To Nursing Amount of Assist 2 Person Assist Needed Discharge Recommendations PT Discharge Acute Rehab Recommendations Transportation Needs Wheelchair/Cabulance at Discharge - PT assist 2
[2025-02-26] MEDS: ACETAMINOPHEN 325 MG TABLET 650 MG PO (12:00)
--- NOTE | 2025-02-26 13:02 | P.PN_ITS ---
Subjective Subjective Interval history: 74-year-old male with underlying hypertension and diabetes who was admitted with a right sided HETAL multifocal stroke. He had acute onset of left lower extremity weakness on the date of admission. He also has a history of chronic cervical spinal disease. Was placed on aspirin and Eliquis upon his MRI results becoming available. He was evaluated by therapies with recommendations for acute inpatient rehab. Yesterday, he developed acute neurologic changes in the setting of hypotension. These resolved with IV fluid boluses. His blood pressure medications were reduced and holding parameters were placed. His blood pressure medications were held this morning as his blood pressure was below holding parameters. He did have another episode of low blood pressure at noon at 95/47. However, he did not become symptomatic like he did yesterday. Exam Vital Signs (past 8 hours): - 02/26/25 08:00 02/26/25 09:02 02/26/25 12:00 Temperature 97.3 F L 97.9 F Pulse Rate 66 72 Respiratory Rate 19 19 Blood Pressure 111/63 111/63 95/47 L Pulse Oximetry 93 94 02/26/25 12:35 Temperature Pulse Rate Respiratory Rate Blood Pressure 118/61 Pulse Oximetry Oxygen Delivery Method Room Air Oxygen Flow Rate 0 Narrative Exam Narrative: GEN: Very pleasant middle-aged male, Alert and oriented x 3, NAD HEENT:NC, Face symmetric CHEST: Respiratory excursions symmetric, CTAB CV: RRR, no M/R/G ABD: Soft, NT/ND, BT present in all 4 quadrants, no organomegaly or masses EXTR: warm, well perfused, no C/C/E SKIN: warm and dry, no rash NEURO: Alert and oriented x 3, ongoing weakness to the left lower extremity, but he is able to lift his legs whereas yesterday it was completely flaccid while sitting in the chair, sensation is intact throughout Objective Labs 02/24/25 04:50 02/24/25 04:50 Labs: Laboratory Results - last 24 hr 02/24/25 04:50 [facility] 5.5 [facility] Medical History (Updated 02/23/25 @ 22:49 by Humberto Zhou DO) Hypertension Social History household members: spouse Smoking Status: Former smoker alcohol intake: current Assessment & Plan Assessment & Plan narrative: 1. Right HETAL cardioembolic stroke Continue Eliquis and aspirin as well as high-dose statin therapy. Await echocardiogram. 2. Acute neurologic change secondary to hypotension No recurrence. However, he did have transient hypotension again this afternoon. Blood pressure was 111 systolic at 8:00 a.m. this morning. Will hold his evening metoprolol tonight. Continue to monitor. 3. Diabetes mellitus type 2 Blood sugars remain well controlled ranging from 81-124. 4. Cervical spinal disease He has severe spinal canal narrowing at C4-5 with associated moderate bilateral neural foraminal narrowing due to disc osteophyte complex. There is also mild spinal canal narrowing at C3-4 and moderate spinal canal lumbar spine also reveals multilevel foraminal narrowing most severe at L5-S1 surrounding the left exiting nerve. Code status Full Prophylaxis Eliquis Disposition PT is recommending acute inpatient rehab. Await insurance approval. OT eval pending. Time-Based Coding :: [TOTAL MINUTES] spent with patient and on the chart (including review of chart, obtaining history, exam, reviewing outside data, placing orders, documenting exam and treatment plan, and counseling patient) on [DATE]. Quality VTE Deep Vein Thrombosis/Pulmonary Embolism Present on Admission: No
--- NOTE | 2025-02-26 14:07 | CM.DPC ---
DCP Cont: Per MD, pt slowly improving and in agreement with Acute Inpt Rehab at d/c. OT still pending as no OT on the w/e. Per PT, still recommending Acute Rehab at d/c. RONALD contacted [facility] and he confirms referral was received and he will begin reviewing and will let SW know tomorrow Thursday. RONALD secure emailed updated MD note and PT note from today to review. BELKIS Gonzalez
--- NOTE | 2025-02-26 14:34 | DI.ECHO.S_ITS ---
[place] [facility]---------+ [facility] : : [address] : : [place] : : [id number] : : Phone: [phone] Echocardiogram Report + :Name: NICOLE SANDERS Study Date: 02/26/2025 Height: 70 in : :[facility] : Weight: 220 lb: : Gender: Male BSA: 2.2 m2 : :: 1950 Age: 74 yrs : :Reason For Study: STROKE : : Performed By: Supervisor [employer] Alexandra Massey : :Referring: GOOD LÓPEZ : + Interpretation Summary 1. The left ventricular contractility is borderline. Estimated ejection fraction is approximately 50 to 55% with no segmental wall motion abnormalities. Mild concentric LVH. Normal diastolic function. 2. The right ventricular contractility is normal. 3. Mild left atrial enlargement. There is borderline right ventricle enlargement. The right atrium and left ventricle are of normal size. 4. There is moderate to severe aortic insufficiency per pressure half-time but color Doppler suggest more severe aortic insufficiency. The accuracy of the pressure half-time is somewhat compromised due to the eccentric nature of the regurgitant jet. The aortic valve does appear to be bicuspid. No significant stenosis appreciated. 5. No intracardiac shunts noted on agitated saline contrast study. 6. No obvious intracardiac masses nor thrombi. 7. No hemodynamically significant pericardial effusion. 8. Normal right-sided filling pressures. 9. Dilated aortic root without obvious dissection. Conclusion: Low normal left ventricular systolic function with probable severe aortic insufficiency. When compared with previous echocardiogram, there is a decline in the left ventricular systolic function with progression of the aortic insufficiency. Procedure: A two-dimensional transthoracic echocardiogram with color flow and Doppler was performed. The study quality was technically adequate. Comparison is made with the echocardiogram of 08/26/2024. A saline contrast injection was performed to assess for cardiac shunting. The injection was performed through an intravenous line in the right arm. The heart rate ranged between 47-78 bpm during the study. Left Ventricle: The left ventricle is normal in size. There is mild concentric left ventricular hypertrophy. The ejection fraction is estimated to be 50-55%. Right Ventricle: The right ventricle is borderline dilated. The right ventricular systolic function is normal. Atria: Both atria are normal in size. Doppler interrogation and injection of saline echo contrast shows no evidence for an interatrial shunt. Bubble study was captured on image frame(s) # 112/113. Mitral Valve: The mitral valve leaflets are mildly calcified. There is mild mitral annular calcification. There is no mitral regurgitation. Aortic Valve: The aortic valve is bicuspid. The aortic valve is mildly calcified. There is no aortic valve stenosis. There is moderate to severe aortic regurgitation. Tricuspid Valve: The tricuspid valve leaflets are thin and pliable. There is a trace or physiologic amount of tricuspid regurgitation. The right ventricular systolic pressure is estimated to be at least 20 mmHg based on an estimated right atrial pressure of 8 mm Hg. Pulmonic Valve: The pulmonic valve is not well visualized. There is trace pulmonic regurgitation. Great Vessels: The aortic root is moderately dilated. The ascending aorta is at the upper limits of normal in size. The aortic arch could not be visualized. The IVC is dilated (diameter is greater than 2.1 cm) yet it collapses greater than 50% with a sniff. This suggests a right atrial pressure of 8 mm Hg. Pericardium/ Pleura There is no pericardial effusion. There is no pleural effusion. MMode/2D Measurements & Calculations LVIDd: 5.5 cm LVOT diam: 3.0 cm LVIDs: 4.4 cm Ao root diam: 4.5 cm FS: 18.8 % asc Aorta Diam: 3.8 cm IVSd: 1.3 cm LVPWd: 1.2 cm LV hendrix. diameter/BSA (cm/m^2): 2.5 LV sys. diameter/BSA (cm/m^2): 2.0 LA A2 area: 19.3 cm2 RA long axis: 5.3 cm LA A4 area: 22.2 cm2 RA area: 19.0 cm2 LA length (vol): 6.6 cm RA vol: 57.5 ml LA vol: 55.2 ml RA : 26.5 ml/m2 LA vol index: 25.4 ml/m2 IVC diam: 2.6 cm RVD1 (basal): 4.3 cm TAPSE: 2.2 cm Doppler Measurements & Calculations Ao V2 max: 182.0 cm/sec LVOT Max Axel: 129.6 cm/sec Ao V2 mean: 116.4 cm/sec LV V1 max P.7 mmHg Ao max P.3 mmHg LV V1 VTI: 28.7 cm Ao mean P.4 mmHg MERVAT(I,D): 4.8 cm2 Ao V2 VTI: 40.8 cm MERVAT(V,D): 4.9 cm2 sev ratio: 0.70 MERVAT indexed to BSA (cm^2/m^2): 2.2 AI P1/2t: 429.9 msec AI dec slope: 255.4 cm/sec2 MV E max axel: 51.2 cm/sec TR max axel: 167.9 cm/sec MV A max axel: 93.8 cm/sec TR max P.3 mmHg MV E/A: 0.55 PA pr(Accel): 8.8 mmHg MV dec time: 0.12 sec SV(LVOT): 197.3 ml Reading Physician:MARIANNA
[2025-02-26] MEDS: ATORVASTATIN 20 MG TABLET 80 MG PO (20:26)
[2025-02-26] MEDS: FERROUS SULFATE 325 MG TABLET PO (20:27)
[2025-02-27] VITALS (9 sets, daily range): BP systolic 116–155; BP diastolic 53–73; PULSE 63–72; RESP 17–20; TEMP 36.2–36.8; O2SAT 94–97
[2025-02-27] MEDS: HYDROCODONE/ACET 5/325 TABLET 1 TAB PO (06:37)
[2025-02-27] MEDS: INSULIN LISPRO 100 UNIT/ML 3ML VIAL SUBCUT ×2 (08:17→12:04)
[2025-02-27] MEDS: METOPROLOL ER 50 MG TABLET PO (08:17)
[2025-02-27] MEDS: MULTIVITAMIN 1 TABLET 1 TAB PO (08:17)
[2025-02-27] MEDS: APIXABAN 5 MG TABLET PO (08:18)
[2025-02-27] MEDS: PREGABALIN 75 MG CAPSULE 150 MG PO ×2 (08:18→20:37)
[2025-02-27] MEDS: AMLODIPINE 5 MG TABLET 10 MG PO (08:18)
[2025-02-27] MEDS: lisinopriL 20 MG TABLET 40 MG PO (08:18)
[2025-02-27] MEDS: ASPIRIN EC 81 MG TABLET PO (08:18)
[2025-02-27] MEDS: POTASSIUM CHLORIDE 20 MEQ TAB PO ×2 (08:19→20:37)
[2025-02-27] MEDS: SODIUM CHLORIDE 0.9% FLUSH 10 ML IV ×2 (08:19→20:38)
--- NOTE | 2025-02-27 09:32 | OT.IP.EVAL ---
Current Diagnoses Cerebral infarction due to embolism of unspecified cerebral artery (02/23/25) Past Medical History (Last Reviewed 07/06/19 @ 23:21 by Mary Perry DO) Hypertension Occupational Therapy Inpatient Evaluation/Re-Eval M1 PT/OT-IP Prior Functional Status Start: 02/25/25 13:05 Freq: NEEDED Status: Active Protocol: Document 02/27/25 08:57 MIKE (Rec: 02/27/25 09:32 MIKE Desktop) Medical Review Prior Functional Status Medical History Yes Reviewed Communication Pt is able to make needs known. Pt speaks slowly and occasionally slurs his words. Pt needs increased time to answer at times. Mobility and Gait Pt stated that he was independent with all mobilities and ambulation without AD. 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 Pt was I with driving. Social History Household Members spouse Living Arrangements House Number of Floors ( One Floor Floors) Number of Stairs To no steps to enter Enter/Railing? Home Environment Standard Height Toilet,Walk in Shower Home Equipment Four Wheel Walker,Straight Cane,Shower Seat with Backrest,Hand Held Shower,Grab Bars In Shower Employment Status Retired M2 OT-IP Current Condition Start: 02/27/25 08:57 Freq: Status: Active Protocol: Document 02/27/25 08:57 MIKE (Rec: 02/27/25 09:32 MIKE Ch[place]illa) Occupational Therapy Current Condition Current Condition Evaluation Date 02/27/25 Treatment Diagnosis CVA Diagnosis Onset Date 02/23/25 M3 OT- IP Subjective and Pain Start: 02/27/25 08:57 Freq: Status: Active Protocol: Document 02/27/25 08:57 MIKE (Rec: 02/27/25 09:32 AMBERLYMESUKUMAR Chinchilla) OT- Subjective Occupational Therapy Visit Type Type Initial Evaluation Visit Start Time 08:20 Visit Stop Time 08:55 Notes Pt sitting up in chair with nsg present on entrance of OT. BP in sitting 120/65, BP when standing 154/70 Occupational Therapy Visit Comments Patient Comments Pt is agreeable to participating in OT eval. Pt reports he can tell he is getting a little stronger every day. Pt reports being eager and willing to participate in all therapy available to him so that he can return home as I'ly as possible. Patient/Caregiver To go home. Goals OT Pain Assessment Pain When Pain Assessed After Treatment Pain Present Pain Present Denied Pain M4 OT- IP ADL's Start: 02/27/25 08:57 Freq: Status: Active Protocol: Document 02/27/25 08:57 MIKE (Rec: 02/27/25 09:32 AMBERLYMESUKUMAR Desktop) OT XBZ-Skod-Dtdxpuh General Evaluation Self-Feeding Ability Independent Comments OT Self-Feeding OT present for pt breakfast. Pt has shaking in B UEs Comments which he reports is new. Pt is able to open all packages and manages his meal with I. No coughing or pocketing noted. OT ADL-Grooming General Evaluation Grooming Ability Standby Assistance,Contact Guard Assistance Comments OT Grooming Comments Pt merritt his hair while sitting up in chair on set up. Pt performs sink side hand washing with CGA for balance as pt leans posteriorly and to the L, this increased the longer he stood at the sink. OT ADL-Oral Care Comments Oral Care Comments not observed OT ADL-Dressing General Eval Lower Body Dressing Minimal Assistance Ability Areas Needing Underpants/Brief,Pants/Shorts,Socks Assistance Comments OT Dressing Comments Pt doffed/donned socks while sitting up in chair. When donning/doffing L sock, pt had LOB to the L. Pt then proceeded to use the armrest to hold himself up while completing the task. Pt unable to self correct his posture until his foot has returned to the ground. OT ADL-Toileting General Evaluation Toileting Ability Contact Guard Assistance Comments OT Toileting Pt utilizes a urinal without assistance. However, based Comments on other evaluation findings, pt will likely require CGA when performing BM especially during clothing mgmt and hygiene. OT ADL-Bathing Comments OT Bathing Comments not observed. Pt will benefit from seated strategies when first attempted due to balance and activity intolerance. M5 OT- IP IADL's Start: 02/27/25 08:57 Freq: Status: Active Protocol: Document 02/27/25 08:57 MIKE (Rec: 02/27/25 09:32 AMBERLYMESUKUMAR Desktop) OT-Instrumental Activities of Daily Living Deficits IADL Deficits Deficits Identified Home Safety Awareness Awareness of Need Good Awareness for Assistance at Home Ability to Problem Able to Problem Solve Solve Emergency Situations Medication Management Medication No Deficits Identified Management Money Management Money Management No Deficits Identified Meal Preparation Meal Preparation Caregiver Provides Assist Territory Representative Territory Representative Caregiver Provides Assist Driving Driving Caregiver Provides Assist Driving Comments Pt will likely need assist on d/c M6 OT- IP Functional Cognition Start: 02/27/25 08:57 Freq: Status: Active Protocol: Document 02/27/25 08:57 AMBERLYELIANEALICEMITESH (Rec: 02/27/25 09:32 [facility]) Cognitive Factors Limiting Selfcare Function Cognitive Ability Level of Alertness Alert Patient Orientation Name,Age,Birthday,Month,Date,Year,Day of Week,Place, Situation Attention Span Capable of Focused Attention,Capable of Sustained Ability Attention Ability to Follow Able to Follow One Step Commands,Able to Follow Multi- Commands Step Commands Memory Description No Deficits Noted Safety Awareness No Deficits Noted Problem Solving No deficits Noted Ability Executive Function No Deficits Noted Ability Abstract Thinking No Deficits Noted Ability Cognitive Comments Cognitive Assessment Pt requires increased time to answer questions at times Comments . OT- Vision and Hearing OT- Hearing Assessment OT- Hearing WFL Assessment OT- Vision Assessment Visual Acuity WFL,Glasses All The Time M7 OT- IP Mobility and Balance Start: 02/27/25 08:57 Freq: Status: Active Protocol: Document 02/27/25 08:57 CURTISALICEMITESH (Rec: 02/27/25 09:32 [facility]) OT-Transfer Assessment Sit to and From Stand Sit to and from Minimal Assistance,1 Person Assistance,Use of Upper Stand Extremities Transfers Transfer Ability Moderate Assistance,1 Person Assistance,Use of Upper Extremities Technique Transfer Destination Chair Transfer Technique Stand Step Pivot Devices Transfer Assistive Gait Belt,Front Wheeled Walker Devices Comments Mobility Comments Pt requires vcs to push up from chair and to reach back for chair when returning to sitting. Pt leans posteriorly and to the L and requires CGA to min A to correct. OT- Gait Assessment Gait Gait Assistance Minimum Assistance,1 Person Assist Required: Distance (Feet) 10 Assistive Devices Assistive Device Gait Belt,Front Wheeled Walker Comments Gait Ability Pt has decreased step length and decreased foot Comments clearance on the L LE requiring vcs to pickling operator his foot when amb to the sink. Pt leans posteriorly and to the L at times needing up to min A to correct. OT- Balance Assessment Sitting Balance and Reactions Static Sitting Fair Balance Ability Dynamic Sitting Poor Balance Ability Standing Balance and Reactions Static Standing Fair Balance Ability Dynamic Standing Poor Balance Ability M8 OT- IP Objective Assessments Start: 02/27/25 08:57 Freq: Status: Active Protocol: Document 02/27/25 08:57 [facility] (Rec: 02/27/25 09:32 [facility] Desktop) OT Gross Range of Motion Upper Extremity Range of Motion Assessment Within Functional Limits OT Strength Upper Extremity Strength Assessment Left Impaired Shoulder flex 4-, ext 4 Elbow flex/ext 4- Wrist flex/ext 4- Hand 4 Hand O And M Supervisor Strength Hand Dominance Left Comments Strength Comments R UE 5/5 grossly OT- Coordination Assessment Upper Extremity Finger to Nose Test Within Functional Limits Comments Coordination mild dysdiadochokinesia on L Comments OT-Muscle Tone Assessment Muscle Tone WNL Yes OT Sensation Assessment Comments Summary Comments Pt correctly identifies light touch of L UE equal to that of R UE. Edema Edema Absent M9 OT- IP Assessment and Plan Start: 02/27/25 08:57 Freq: Status: Active Protocol: Document 02/27/25 08:57 MIKE (Rec: 02/27/25 09:32 [facility] Desktop) OT Summary Assessment and Plan Potential Rehabilitation Excellent Potential Analytic Complexity Low at Evaluation Summary OT Impairments Strength,Balance,Coordination,Functional Mobility, Grooming,Dressing,Toileting,Bathing,Toilet Transfers, Shower Transfers,Activity Tolerance Progress Towards Progressing Toward Goals Goals Assessment Summary Pt is 74 yo M who presented to the ED with LLE weakness and was admitted for CVA. Pt lives with his and two dogs and was I with all BADL and IADLs to include mowing 8 acres twice a week. Pt presents with up to min A for BADLs and mod A for functional t/fs. Pt has LOB to the L and posteriorly both in sitting and standing limiting his I with BADLs and IADLs. Pt with L dominant UE weakness and coordination deficits. Skilled OT services are appropriate to address pt deficits and promote return toward PLOF. Pt would benefit from acute rehab to improve overall strength, balance, BADL, and functional mobility for safe d/c home. Goals Grooming Goal Independent Dressing Goal Independent Toileting Goal Independent Bathing Goal Independent Toilet Transfer Goal Independent,Standard Toilet Shower Transfer Goal Independent,Walk-in Shower,Shower Chair,Grab Bars Days to Meet Goals 10 Frequency of Treatment Other frequency 5x/wk Treatment Plan OT Treatment Plan ADL Training,Functional Mobility,Therapeutic Exercises, Patient/Family Education,Discharge Planning Discharge Recommendations OT Discharge Acute Rehab Recommendations Transportation Needs Wheelchair/Cabulance at Discharge
--- NOTE | 2025-02-27 09:47 | PT.IPTN ---
Current Diagnoses Cerebral infarction due to embolism of unspecified cerebral artery (02/23/25) Physical Therapy Treatment Note M2 PT-IP Current Condition Start: 02/25/25 13:05 Freq: NEEDED Status: Active Protocol: Document 02/25/25 11:30 AB (Rec: 02/25/25 13:18 AB Desktop) Physical Therapy Current Condition Current Condition Evaluation Date 02/25/25 Treatment Diagnosis CVA; difficulty in walking Onset Date 02/23/25 M3 PT-IP Subjective Start: 02/25/25 13:05 Freq: NEEDED Status: Active Protocol: Document 02/27/25 09:47 LRN (Rec: 02/27/25 09:52 LRN Laptop) Subjective Physical Therapy Visit Type Type Treatment Note Visit Start Time 09:20 Visit Stop Time 09:43 Physical Therapy Visit Comments Patient Comments Pt states he is doing much better, can lift and move his L foot. M4 PT-IP Mobility and Gait Start: 02/25/25 13:05 Freq: NEEDED Status: Active Protocol: Document 02/27/25 09:47 LRN (Rec: 02/27/25 15:23 LRN Laptop) PT-Transfer Assessment Sit to and From Stand Sit to and from Minimal Assistance,1 Person Assistance,Use of Upper Stand Extremities Equipment Transfer Assistive Gait Belt,Front Wheeled Walker Device Orthotic/Prosthetic No Devices or Brace: Transfer Ability Level of Assist Minimal Assistance,1 Person Assistance,Use of Upper Extremities Comments Mobility Comments Pt in bed to start and requested being left in chair at end of treatment. Gait Assessment Gait Gait Assistance Minimum Assistance,Moderate Assistance,1 Person Assist Required: Distance (Feet) 3 Able to Maintain Yes Weight Bearing Status During Gait Assistive Devices Assistive Device Gait Belt,Front Wheeled Walker Orthotic/Prosthetic No Devices or Brace: Gait Deviations General Gait Pattern Decreased Stride Length,Decreased Feet Clearance,Wide Based Gait Factors Limiting Gait Function Factors Limiting Decreased Activity Tolerance,Decreased Sensation, Gait Function Decreased Strength,Poor Balance,Poor Safety Awareness M5 PT-IP Objective Assessments Start: 02/25/25 13:05 Freq: NEEDED Status: Active Protocol: Document 02/25/25 11:30 AB (Rec: 02/25/25 13:18 AB Desktop) Orientation Orientation/Cognition Level of Alertness Alert Orientation Name,Place,Situation Language Function No Deficits Noted Ability Safety Awareness Decreased Safety Awareness Memory Description No Deficits Noted Gross Range of Motion Lower Extremity ROM Assessment Within Functional Limits Strength Lower Extremity Strength Assessment Left Impaired Hip 3+/5 Knee 3+/5 Ankle 3+/5 Sensation Assessment Sensation Gross Sensation Right LE Impaired,Left LE Impaired Sensation Numbness Description Comments Sensation Comments B feet numbness: chronic per pt due to back issues Muscle Tone Muscle Tone WNL Yes M6 PT-IP Treatment Start: 02/25/25 13:05 Freq: NEEDED Status: Active Protocol: Document 02/27/25 09:47 LRN (Rec: 02/27/25 09:52 LRN Laptop) Physical Therapy Treatment Exercises Exercises Ankle Pumps,Short Arc Quads Education Education Provided Safety Other Treatments Other Treatment All ex's in sitting, bilateral LE: (see above), knee Performed flexion, marching. M7 PT-IP Assessment and Plan Start: 02/25/25 13:05 Freq: NEEDED Status: Active Protocol: Document 02/27/25 09:47 LRN (Rec: 02/27/25 09:52 LRN Laptop) PT Summary Assessment and Plan Potential Rehabilitation Good Potential Status of Condition Evolving at Evaluation Summary Impairments Pain,ROM,Strength,Balance,Coordination,Sensation,Tone, Bed Mobility,Transfers,Gait,Activity Tolerance Progress Towards Progressing Toward Goals Goals Assessment Summary Pt initially reported dizziness/lightheadedness while eating breakfast, but notes he was only slightly lightheaded at start of therapy. RN notified and was present during standing gait activities. Vitals were good during therapy. Pt requiring less assistance and has notable improved L LE strength and stability with gait today. He appears highly motivated but still limited by decreased strength/endurance in LLE, BP was good today. Min A for sit<>stand w/ FWW and gait. Pt had one episode of feeling like LOB backward, but functionally not significantly noted. Gait distance incr'd mildly due to LE weakness as walking progressed. Pt will need 24/7 assist and will benefit from acute rehab to improve overall strength and mobility independence. Goals Bed Mobility Goal Standby Assistance Transfer Goal Standby Assistance,Front Wheeled Walker Gait Goal Standby Assistance,Front Wheel Walker Gait Distance 50 Other Goals improve bed mobility, transfers, ambulation using FWW 100 ft SBA Days to Meet Goals 10 Frequency of Treatment Frequency Of Once a Day Treatment Treatment Plan Physical Therapy Bed Mobility Training,Transfer Training,Gait Training, Treatment Plan Therapeutic Exercise,Balance Retraining,Discharge Planning,Hot or Cold Pack,Neuromuscular Re-ed, Coordination Retraining,Manual Therapy Recommendations To Nursing Amount of Assist 1 Person Assist Needed Discharge Recommendations PT Discharge Acute Rehab Recommendations Transportation Needs Wheelchair/Cabulance at Discharge - PT assist 1
[2025-02-27] MEDS: DOCUSATE 100 MG CAPSULE PO ×2 (10:32→20:37)
--- NOTE | 2025-02-27 10:52 | CM.DPC ---
DCP Acute Rehab Cont: Per PT/OT this AM, still recommending Acute Rehab and OT completed their eval note in EMR. SW faxed updated sparkle AMARAL MD prog note, OT eval note to Fermin at [facility] and they reviewed as a team and confirm they can accept the pt and will submit for BX Fed auth for Acute rehab today. SW met bedside with pt and updated on acceptance and pt very appreciative and aware we are waiting for insurance auth for Acute rehab. Discussed that they do not provide transport to their facility and pt confirms that spouse can transport at d/c but states spouse has bowel issues so might have to put discharge off a day if she is having a flare up. Discussed that if auth obtained then likely cannot postpone discharge due to transportation and strongly encouraged pt to consider backup transport person and he states his brother jonas likely could transport if spouse unable to. Plan: SW to follow for plan of d/c to [facility] rehab once insurance auth obtained and family to transport. Faviola Ham MSW
[2025-02-27] MEDS: PANTOPRAZOLE DR 40 MG TABLET PO (16:20)
--- NOTE | 2025-02-27 19:20 | PM.PN.1 ---
Subjective Subjective Date Patient Seen: 02/27/25 Interval history: 74-year-old male with underlying hypertension and diabetes who was admitted with a right sided HETAL multifocal stroke. He had acute onset of left lower extremity weakness on the date of admission. He also has a history of chronic cervical spinal disease. TTE showed borderline EF (slight decline from prior) and worsening aortic insufficiency. He has no severe dyspnea (more fatigue noted per family) but dnoes not appear volume overloaded at this time. Recommend outpatient follow up with patient's sales review clerk after discharge. Patient has never been diagnosed with afib, and telemetry has been unremarkable here. Despite concern with possible embolic phenomonon noted on MRI for atrial fibrillation, recent data has shown that empirically starting anticoagulation increases bleeding risk without significant stroke reduction benefit compared to DAPT. Discussed with patient and he was agreeable to stop apixaban at this time after discussion today. Exam Vital Signs (past 8 hours): - 02/27/25 12:00 02/27/25 16:00 Temperature 97.2 F L 97.4 F L Pulse Rate 63 66 Respiratory Rate 17 18 Blood Pressure 116/64 122/66 Pulse Oximetry 96 97 Oxygen Delivery Method Room Air Oxygen Flow Rate 0 Narrative Exam Narrative: GEN: Very pleasant middle-aged male, Alert and oriented x 3, NAD HEENT:NC, Face symmetric CHEST: Respiratory excursions symmetric, CTAB CV: RRR, no M/R/G ABD: Soft, NT/ND, BT present in all 4 quadrants, no organomegaly or masses EXTR: warm, well perfused, no C/C/E SKIN: warm and dry, no rash NEURO: Alert and oriented x 3, ongoing weakness to the left lower extremity, but he is able to lift his legs whereas yesterday it was completely flaccid while sitting in the chair, sensation is intact throughout Objective Labs 02/24/25 04:50 02/24/25 04:50 [facility] Medical History (Updated 02/23/25 @ 22:49 by Humberto Zhou DO) Hypertension Social History household members: spouse Smoking Status: Former smoker alcohol intake: current Assessment & Plan Assessment & Plan narrative: 1. Right HETAL CVA - Had been previously started on apixaban and asa for possible embolic source. - given TTE with aortic insufficiency and slight decline in EF (Still normal EF), there is a possibility of atrail fibrillation / embolic source. Discussed with patient today regarding risks and benefits of this situation. He would like to switch back to DAPT treatment for 21 days. - continue telemetry until discharge to monitor for possible atrial fibrillation - TTE without evidence for PFO. - continue PT/OT, recommended for acute rehab, pending insurance authorization. 2. Acute neurologic change secondary to hypotension - blood pressure medications have been reduced, improved symptoms and BP today. If additional episodes can reduce medications further. 3. Diabetes mellitus type 2 Blood sugars remain well controlled ranging from 81-124. 4. Cervical spinal disease He has severe spinal canal narrowing at C4-5 with associated moderate bilateral neural foraminal narrowing due to disc osteophyte complex. There is also mild spinal canal narrowing at C3-4 and moderate spinal canal lumbar spine also reveals multilevel foraminal narrowing most severe at L5-S1 surrounding the left exiting nerve. Code status Full Prophylaxis Eliquis Disposition Therapies recommending acute inpatient rehab. Await insurance approval. Time-Based Coding :: [TOTAL MINUTES] spent with patient and on the chart (including review of chart, obtaining history, exam, reviewing outside data, placing orders, documenting exam and treatment plan, and counseling patient) on [DATE]. Quality VTE Deep Vein Thrombosis/Pulmonary Embolism Present on Admission: No
[2025-02-27] MEDS: ATORVASTATIN 20 MG TABLET 80 MG PO (20:37)
[2025-02-27] MEDS: FERROUS SULFATE 325 MG TABLET PO (20:38)
[2025-02-27 20:52] LABS: BUN Creatinine Ratio 21.3 (6-22); Blood Urea Nitrogen 17 mg/dL (9-20); Calcium 9.8 mg/dL (8.4-10.2); Carbon Dioxide 32 mmol/L (22-32); Chloride 96 mmol/L (98-107); Estimated Glomerular Filt Rate > 60 mL/min (>60); Glucose 127 mg/dL (70-99); HEMOLYSIS < 15 (0-50); Potassium 3.3 mmol/L (3.4-5.1); Sodium 136 mmol/L (137-145)
--- NOTE | 2025-02-27 21:55 | PC.NURSE ---
halftone operator: Patient is AxOx4, VSS. NIH: 1 (L leg weakness) although has substantially improved per patient. Notified by ICU that tele reading has progressed from 1st degree AV block to 2nd degree, notified MD Posada. Labs ordered, notified MD of results. Denies pain, nausea, SOB, or dizziness. Oriented to call-light, plan of care ongoing.
[2025-02-28] VITALS: BP 159/82; PULSE 72; RESP 17; TEMP 36.8; O2SAT 96
[2025-02-28 04:00] VITALS: BP 111/58; PULSE 73; RESP 18; TEMP 36.5; O2SAT 93
[2025-02-28] MEDS: HYDROCODONE/ACET 5/325 TABLET 1 TAB PO (06:14)
[2025-02-28 07:00] LABS: BUN Creatinine Ratio 18.7 (6-22); Blood Urea Nitrogen 14 mg/dL (9-20); Calcium 9.4 mg/dL (8.4-10.2); Carbon Dioxide 27 mmol/L (22-32); Chloride 102 mmol/L (98-107); Estimated Glomerular Filt Rate > 60 mL/min (>60); Glucose 119 mg/dL (70-99); HEMOLYSIS < 15 (0-50); Potassium 3.6 mmol/L (3.4-5.1); Sodium 137 mmol/L (137-145)
[2025-02-28 08:00] VITALS: BP 115/58; PULSE 69; RESP 16; TEMP 36.3; O2SAT 95
[2025-02-28] MEDS: ASPIRIN EC 81 MG TABLET PO (09:34)
[2025-02-28] MEDS: lisinopriL 20 MG TABLET 40 MG PO (09:34)
[2025-02-28] MEDS: DOCUSATE 100 MG CAPSULE PO (09:35)
[2025-02-28] MEDS: METOPROLOL ER 50 MG TABLET PO (09:35)
[2025-02-28] MEDS: CLOPIDOGREL 75 MG TABLET PO (09:35)
[2025-02-28] MEDS: PREGABALIN 75 MG CAPSULE 150 MG PO (09:36)
[2025-02-28] MEDS: MULTIVITAMIN 1 TABLET 1 TAB PO (09:36)
[2025-02-28] MEDS: AMLODIPINE 5 MG TABLET 10 MG PO (09:56)
[2025-02-28] MEDS: POTASSIUM CHLORIDE 20 MEQ TAB PO (09:57)
--- NOTE | 2025-02-28 10:23 | P.DS_ITS ---
History of Present Illness History of Present Illness Date Patient Seen: 02/28/25 Time Patient Seen: 10:23 Chief complaint: Left leg weakness Narrative: Per admitting provider, 74-year-old male with past medical history of hypertension and diabetes presents with complaint of acute onset of left leg weakness.? Per the patient's report, around 6 PM today, the patient started to have acute onset of left leg weakness.? Today the patient had a mole in the cyst superficial part of his left leg that was removed.? The patient states that he walked out of the office fine and did not have any issue.? However when he got home this evening around 6 PM he noticed the acute onset of weakness.? The patient however denies any numbness or any abnormal sensation to his left leg.? Denies any headache or in lower back pain.? The patient also denies any slurred speech, facial drooping, or any other focal weakness. In the emergency room, the patient was hemodynamically stable.? NIH was reported to be 3.? On exam per our ER physician the patient does have signs of weakness in his left leg but no other focal finding.? CT scan of the head and neck with angiography showed and without contrast shows no acute finding.? Neurostroke was also consulted and think that this could be due to peripheral rather than central nervous system.? Recommended MRI of the low back.? Of note spinous surgeon was also contacted who agree with plan with that MRI.? Of note CT scan of the lower lumbar spine also negative.? The patient weakness was slightly improved per ER physician after reassessment. Discharge Providers Provider Date of admission: 02/23/25 23:41 Discharge Date: 02/28/25 Primary care physician: Humberto Castellanos MD Consults: 02/23/25 23:50 Consult to Occupational Therapy Evaluate & Treat Comment: Physician Instructions: Evaluate and treat Consult to Physical Therapy Evaluate & Treat Comment: Physician Instructions: Evaluate and Treat 02/24/25 17:07 Consult to Physical Therapy Evaluate & Treat Comment: cva Physician Instructions: Evaluate and Treat 02/24/25 17:08 Consult to Occupational Therapy Evaluate & Treat Comment: cva Physician Instructions: Evaluate and treat Discharge provider: Humberto Bruce DO Summary Hospital Course Discharge Diagnosis: 1. Right HETAL CVA, acute, present on admission. 2. Acute neurologic change secondary to hypotension 3. Diabetes mellitus type 2 4. Cervical spinal disease 5. Aortic insufficiency with bicuspid aortic valve. Hospital Course: This is a 74 year old male with PMH of bicuspid aortic valve, aortic insufficiency, DM2, cervical stenosis who was admitted with left sided weakness and stroke. MRI confirmed a R HETAL infarct. There were also other areas of infarction, possibly signalling an embolic source. TTE showed a slight decrease in his EF and worsening aortic sufficiency. He follows with [facility] and should follow up in the near future as an outpatient to discuss ongoing valve management. He had no hypoxia or volume overload, but does note increasing fatigue recently. For his stroke, he was initially started on empiric anticoagulation given MRI findings for possible embolic etiology. However telemetry has showed no atrial fibrillation, and he has no previous diagnosis per patient. Apixaban was therefore changed back to DAPT for 21 days, along with high intensity statin. His course was complicated by hypotension, likely due to too high of doses of antihypertensives which improved with dose reduction. After therapy evaluation he was recommended for acute rehab, where he was transferred on 02/28/25. Further evlauation with holter monitor is recommended for continued evaluation for possible atrial fibrillation. Time Spent with Patient Time spent: Greater than 30 minutes Exam Vital Signs (past 8 hours): - 02/28/25 04:00 02/28/25 08:00 Temperature 97.7 F 97.3 F L Pulse Rate 73 69 Respiratory Rate 18 16 Blood Pressure 111/58 L 115/58 L Pulse Oximetry 93 95 Oxygen Flow Rate 0 0 Oxygen Delivery Method Room Air Oxygen Flow Rate 0 Narrative Exam Narrative: GEN: Very pleasant middle-aged male, Alert and oriented x 3, NAD HEENT:NC, Face symmetric CHEST: Respiratory excursions symmetric, CTAB CV: RRR, no M/R/G ABD: Soft, NT/ND, BT present in all 4 quadrants, no organomegaly or masses EXTR: warm, well perfused, no C/C/E SKIN: warm and dry, no rash NEURO: Alert and oriented x 3, ongoing weakness to the left lower extremity, but he is able to lift his legs whereas previously it was completely flaccid while sitting in the chair, sensation is intact throughout Objective Labs 02/24/25 04:50 02/28/25 06:30 Labs: Laboratory Results - last 24 hr 02/27/25 02/28/25 20:33 06:30 Sodium 136 L 137 Potassium 3.3 L 3.6 Chloride 96 L 102 Carbon Dioxide 32 27 BUN 17 14 Creatinine 0.80 0.75 Estimated GFR > 60 > 60 BUN/Creatinine Ratio 21.3 18.7 Glucose 127 H 119 H Calcium 9.8 9.4 Magnesium 2.0 [facility] Medical History (Updated 02/23/25 @ 22:49 by Humberto Zhou DO) Hypertension Social History household members: spouse Smoking Status: Former smoker alcohol intake: current Discharge Plan Discharge Plan Patient Disposition: SNF Other facility: Acute [facility] Provider Discharge Comment: See discharge summary Discharge orders & Medications Prescriptions: New aspirin 81 mg Tablet,Delayed Release (Dr/Ec) 81 mg PO DAILY Qty: 90 0RF atorvastatin 80 mg tablet 80 mg PO BEDTIME Qty: 90 0RF acetaminophen 325 mg Tablet 650 mg PO Q6H PRN (Reason: Fever/Mild Pain (1-3)) Qty: 90 0RF polyethylene glycol 3350 17 gram Powder In Packet 17 gm PO DAILY PRN (Reason: CONSTIPATION) Qty: 30 0RF metoprolol succinate 50 mg Tablet Extended Release 24 Hr 50 mg PO DAILY 30 Days Qty: 30 0RF clopidogrel 75 mg Tablet 75 mg PO DAILY Qty: 20 0RF pantoprazole 40 mg Tablet,Delayed Release (Dr/Ec) 40 mg PO 1600 Qty: 30 0RF docusate sodium 100 mg Capsule 100 mg PO BID Qty: 30 0RF hydrocodone-acetaminophen 5-325 mg Tablet 1 tab PO BID PRN (Reason: Pain) 7 Days Qty: 14 0RF Continued amlodipine 10 mg tablet 10 mg PO DAILY (DME) blood-glucose meter [True Metrix Glucose Meter] [facility] MISCELLANEOUS DAILY (DME) OneTouch Verio test strips Strip MISCELLANEOUS DAILY metformin 500 mg tablet 1,000 mg PO BID lisinopril 40 mg tablet 40 mg PO DAILY pregabalin 150 mg capsule 150 mg PO BID potassium chloride 20 mEq tablet extended release 20 meq PO BID ferrous gluconate 324 mg (37.5 mg iron) tablet 324 mg PO BEDTIME Ozempic 0.25 mg or 0.5 mg (2 mg/3 mL) pen injector 0.5 mg SUBCUT WEEKLY Centravites 50 Plus 0.4 mg-300 mcg- 250 mcg tablet 1 tab PO DAILY cholecalciferol (vitamin D3) 125 mcg (5,000 unit) tablet 5,000 unit PO DAILY PRN (Reason: vitamin replacement) Discontinued ibuprofen 800 mg tablet 800 mg PO 3XD PRN (Reason: pain) chlorthalidone 25 mg tablet 25 mg PO DAILY metoprolol succinate 100 mg tablet extended release 24 hr 100 mg PO BID Rx Instructions: Take 1/2 tablet in the morning and 1 tablet in the evening. lovastatin 20 mg tablet 20 mg PO DAILY pantoprazole 40 mg tablet,delayed release (DR/EC) 40 mg PO BID oxycodone 30 mg tablet 30 mg PO TID PRN (Reason: pain, severe) hydrocodone-acetaminophen 1 tab PO BID PRN (Reason: Pain) Patient Comments: Keeps on hand when needed for pain relief, but does not use routinely Follow up/Referrals: Humberto Castellanos MD [Primary Care Provider, [facility]] Discharge Health Status Multidrug resistant organism: No MDRO Precautions: Neptune Diet/Activity/Treatments Diet: Diet as Tolerated, Regular and Carb-consistent/Diabetic Liquid consistency: Normal/Thin Food texture: Regular Activity: No restrictions. Special Rehabilitation Services Reason for rehabilitation: Therapy following stroke Rehab type: Physical therapy and Occupational therapy Visit Report/Discharge Packet Stand Alone Forms: Patient Portal/API Discharge Data Primary Care Provider: Humberto Castellanos Quality VTE Deep Vein Thrombosis/Pulmonary Embolism Present on Admission: No
--- NOTE | 2025-02-28 10:34 | CM.DPNOTE ---
DCP note ARTIFICIAL MARBLE WORKER reviewed EMR per Drake at [facility] inpt rehab got ins auth can accept today around 2pm. asked for dc summary, MAR, and med list to be emailed to him. MARTIN Greene kindly agreed to send dc information when available. Ramona updated [facility]. provider made aware of dc. orders pending. ARTIFICIAL MARBLE WORKER gave RN report number to RN, updated on plan. ARTIFICIAL MARBLE WORKER met with pt in room. reviewed plan. remain in agreement, report can transport at 1:30pm. denies other questions/concerns at this time. P: dc today to [facility] inpt rehab. CM team will continue to follow as needed for DCP coordination BELKIS Dunne
--- NOTE | 2025-02-28 11:00 | OT.IP.TRT ---
Current Diagnoses Cerebral infarction due to embolism of unspecified cerebral artery (02/23/25) Occupational Therapy Treatment Note M2 OT-IP Current Condition Start: 02/27/25 08:57 Freq: Status: Active Protocol: Document 02/27/25 08:57 AMBERLYILAN (Rec: 02/27/25 09:32 AMBERLYVTALICEMITESH Desktop) Occupational Therapy Current Condition Current Condition Evaluation Date 02/27/25 Treatment Diagnosis CVA Diagnosis Onset Date 02/23/25 M3 OT- IP Subjective and Pain Start: 02/27/25 08:57 Freq: Status: Active Protocol: Document 02/28/25 11:05 CCC (Rec: 02/28/25 11:16 CCC Desktop) OT- Subjective Occupational Therapy Visit Type Type Treatment Note Visit Start Time 10:20 Visit Stop Time 11:00 Occupational Therapy Visit Comments Patient Comments Pt agreed to get up and do 9 hole peg test and cognitive assessments. Patient/Caregiver TO get better. Goals OT Pain Assessment Pain When Pain Assessed At Rest Pain Present Pain Present Denied Pain M4 OT- IP ADL's Start: 02/27/25 08:57 Freq: Status: Active Protocol: Document 02/27/25 08:57 AMBERLYILAN (Rec: 02/27/25 09:32 [facility] Desktop) OT PIM-Knmo-Jgcomin General Evaluation Self-Feeding Ability Independent Comments OT Self-Feeding OT present for pt breakfast. Pt has shaking in B UEs Comments which he reports is new. Pt is able to open all packages and manages his meal with I. No coughing or pocketing noted. OT ADL-Grooming General Evaluation Grooming Ability Standby Assistance,Contact Guard Assistance Comments OT Grooming Comments Pt merritt his hair while sitting up in chair on set up. Pt performs sink side hand washing with CGA for balance as pt leans posteriorly and to the L, this increased the longer he stood at the sink. OT ADL-Oral Care Comments Oral Care Comments not observed OT ADL-Dressing General Eval Lower Body Dressing Minimal Assistance Ability Areas Needing Underpants/Brief,Pants/Shorts,Socks Assistance Comments OT Dressing Comments Pt doffed/donned socks while sitting up in chair. When donning/doffing L sock, pt had LOB to the L. Pt then proceeded to use the armrest to hold himself up while completing the task. Pt unable to self correct his posture until his foot has returned to the ground. OT ADL-Toileting General Evaluation Toileting Ability Contact Guard Assistance Comments OT Toileting Pt utilizes a urinal without assistance. However, based Comments on other evaluation findings, pt will likely require CGA when performing BM especially during clothing mgmt and hygiene. OT ADL-Bathing Comments OT Bathing Comments not observed. Pt will benefit from seated strategies when first attempted due to balance and activity intolerance. M5 OT- IP IADL's Start: 02/27/25 08:57 Freq: Status: Active Protocol: Document 02/27/25 08:57 [facility] (Rec: 02/27/25 09:32 [facility] Desktop) OT-Instrumental Activities of Daily Living Deficits IADL Deficits Deficits Identified Home Safety Awareness Awareness of Need Good Awareness for Assistance at Home Ability to Problem Able to Problem Solve Solve Emergency Situations Medication Management Medication No Deficits Identified Management Money Management Money Management No Deficits Identified Meal Preparation Meal Preparation Caregiver Provides Assist Data Entry Coordinator Data Entry Coordinator Caregiver Provides Assist Driving Driving Caregiver Provides Assist Driving Comments Pt will likely need assist on d/c M6 OT- IP Functional Cognition Start: 02/27/25 08:57 Freq: Status: Active Protocol: Document 02/28/25 11:05 [facility] (Rec: 02/28/25 11:16 [facility] Desktop) Cognitive Factors Limiting Selfcare Function Cognitive Ability Level of Alertness Alert Patient Orientation Name,Age,Birthday,Month,Date,Year,Day of Week,Place, Situation Attention Span Capable of Focused Attention,Capable of Sustained Ability Attention Ability to Follow Able to Follow Multi-Step Commands Commands Memory Description Short Term Impaired Cognitive Tests SLUMS Pt scored 24/30 on the SLUMS and needing increased time to problem solve. Pt able to states 13 animals in one minute, able to recall 2/5 objects after time passed, and able to answer 3/4 questions right after paragraph read . Pt's score implies mild neurocognitive disorder. Pt realizes that he is not thinking as well as he usually does. Cognitive Comments Cognitive Assessment Pt scored 183 seconds on [place] Making Part B which Comments implies severe impairments for visual attentions, speed of processing, task switching, executive functioning, and mental flexibility. Pt is aware of suggestion and agrees not to drive at this time. M7 OT- IP Mobility and Balance Start: 02/27/25 08:57 Freq: Status: Active Protocol: Document 02/28/25 11:05 [facility] (Rec: 02/28/25 11:16 [facility] Desktop) OT- Bed Mobility Assessment Supine to Sit Supine to Sit Assist Standby Assistance Sit to Supine Sit to Supine Assist Standby Assistance OT-Transfer Assessment Sit to and From Stand Sit to and from Contact Guard Assistance Stand Transfers Transfer Ability Minimal Assistance,Moderate Assistance Technique Transfer Destination Chair Transfer Technique Stand Step Pivot Devices Transfer Assistive Gait Belt,Front Wheeled Walker Devices Comments Mobility Comments Pt needing assist to help keep his LLE from hyperextending when walking with the FWW. OT- Balance Assessment Sitting Balance and Reactions Static Sitting Good Balance Ability Standing Balance and Reactions Static Standing Fair Balance Ability Dynamic Standing Poor Balance Ability M8 OT- IP Objective Assessments Start: 02/27/25 08:57 Freq: Status: Active Protocol: Document 02/27/25 08:57 MIKE (Rec: 02/27/25 09:32 MIKE Desktop) OT Gross Range of Motion Upper Extremity Range of Motion Assessment Within Functional Limits OT Strength Upper Extremity Strength Assessment Left Impaired Shoulder flex 4-, ext 4 Elbow flex/ext 4- Wrist flex/ext 4- Hand 4 Hand Sql Developer Strength Hand Dominance Left Comments Strength Comments R UE 5/5 grossly OT- Coordination Assessment Upper Extremity Finger to Nose Test Within Functional Limits Comments Coordination mild dysdiadochokinesia on L Comments OT-Muscle Tone Assessment Muscle Tone WNL Yes OT Sensation Assessment Comments Summary Comments Pt correctly identifies light touch of L UE equal to that of R UE. Edema Edema Absent M9 OT- IP Assessment and Plan Start: 02/27/25 08:57 Freq: Status: Active Protocol: Document 02/28/25 11:05 [facility] (Rec: 02/28/25 11:16 [facility] Desktop) OT Summary Assessment and Plan Potential Rehabilitation Excellent Potential Analytic Complexity Low at Evaluation Summary OT Impairments Strength,Balance,Coordination,Functional Mobility, Grooming,Dressing,Toileting,Bathing,Toilet Transfers, Shower Transfers,Activity Tolerance Progress Towards Progressing Toward Goals Goals Assessment Summary Pt going to acute rehab today. Pt scored 24/30 on the SLUMS- main issues with STM, scored 183 seconds on [place] Making part B which implies severe impairments for visual attention, speed of processing, mental flexibility, executive functioning, and task switching. Pt scored 34 seconds for 9hole peg test for both hands , which score in below 10% for his age L hand> right hand. Able to educated pt on FMS skills and to be sure to tighten and control his LLE when use of the FWW. Pt is highly motivated to get better and going to acute rehab. Goals Grooming Goal Independent Dressing Goal Independent Toileting Goal Independent Bathing Goal Independent Toilet Transfer Goal Independent,Standard Toilet Shower Transfer Goal Independent,Walk-in Shower,Shower Chair,Grab Bars Days to Meet Goals 15 Frequency of Treatment Other frequency 5x/week Treatment Plan OT Treatment Plan ADL Training,Functional Cognition Training,Functional Mobility,IADL Training,Patient/Family Education, Discharge Planning Discharge Recommendations OT Discharge Acute Rehab Recommendations Transportation Needs Private Vehicle at Discharge
--- NOTE | 2025-02-28 11:00 | PT.IPTN ---
Current Diagnoses Cerebral infarction due to embolism of unspecified cerebral artery (02/23/25) Physical Therapy Treatment Note M2 PT-IP Current Condition Start: 02/25/25 13:05 Freq: NEEDED Status: Active Protocol: Document 02/25/25 11:30 AB (Rec: 02/25/25 13:18 AB Desktop) Physical Therapy Current Condition Current Condition Evaluation Date 02/25/25 Treatment Diagnosis CVA; difficulty in walking Onset Date 02/23/25 M3 PT-IP Subjective Start: 02/25/25 13:05 Freq: NEEDED Status: Active Protocol: Document 02/28/25 11:00 AB (Rec: 02/28/25 13:33 AB [id number]) Subjective Physical Therapy Visit Type Type Treatment Note Visit Start Time 11:00 Visit Stop Time 11:20 Number of HAND BUNCH MAKER Visits 0 Physical Therapy Visit Comments Patient Comments agreeable to do PT M4 PT-IP Mobility and Gait Start: 02/25/25 13:05 Freq: NEEDED Status: Active Protocol: Document 02/28/25 11:00 AB (Rec: 02/28/25 13:33 AB [id number]) PT-Transfer Assessment Sit to and From Stand Sit to and from Minimal Assistance,1 Person Assistance,Use of Upper Stand Extremities Comments Mobility Comments pt sitting on the chair and agreed to do PT. completed sit to stand min A and cues. ambulated in room ~ 35 ft using FWW min A to mod A and cues. cued for L quads activation, heel strike on initial stance phase of gait and use LE strength and not trunk muscles to move LE as pt tends to posterior lean with elevation of LLE. (+ ) slight L knee buckling x 2 with recovery requiring mod A. pt sat back on chair. standing balance activity: static standing with increase emphasis on LE weight bearing and stabilizing LLE, balance with perturbations with PT pushing pt in different directions. pt used FWW for support; standing balance while reaching in different directions. pt completed sit to stand x 3 without use of UE requiring max A and pt can only complete partial standing. completed seated push-up with 5 sec hold with emphasis of pushing LE more than UE. positioned pt on chair. call light and table placed within reach. Gait Assessment Gait Gait Assistance Minimum Assistance,Moderate Assistance,1 Person Assist Required: Distance (Feet) 35 Able to Maintain Yes Weight Bearing Status During Gait Assistive Devices Assistive Device Gait Belt,Front Wheeled Walker Orthotic/Prosthetic No Devices or Brace: Gait Deviations General Gait Pattern Decreased Stride Length,Decreased Feet Clearance,Step- to Gait,Wide Based Gait Factors Limiting Gait Function Factors Limiting Decreased Activity Tolerance,Decreased Strength,Poor Gait Function Balance,Poor Safety Awareness M5 PT-IP Objective Assessments Start: 02/25/25 13:05 Freq: NEEDED Status: Active Protocol: Document 02/25/25 11:30 AB (Rec: 02/25/25 13:18 AB Desktop) Orientation Orientation/Cognition Level of Alertness Alert Orientation Name,Place,Situation Language Function No Deficits Noted Ability Safety Awareness Decreased Safety Awareness Memory Description No Deficits Noted Gross Range of Motion Lower Extremity ROM Assessment Within Functional Limits Strength Lower Extremity Strength Assessment Left Impaired Hip 3+/5 Knee 3+/5 Ankle 3+/5 Sensation Assessment Sensation Gross Sensation Right LE Impaired,Left LE Impaired Sensation Numbness Description Comments Sensation Comments B feet numbness: chronic per pt due to back issues Muscle Tone Muscle Tone WNL Yes M6 PT-IP Treatment Start: 02/25/25 13:05 Freq: NEEDED Status: Active Protocol: Document 02/28/25 11:00 AB (Rec: 02/28/25 13:33 AB [id number]) Physical Therapy Treatment Education Education Provided Safety M7 PT-IP Assessment and Plan Start: 02/25/25 13:05 Freq: NEEDED Status: Active Protocol: Document 02/28/25 11:00 AB (Rec: 02/28/25 13:33 AB [id number]) PT Summary Assessment and Plan Potential Rehabilitation Fair Potential Summary Impairments Pain,ROM,Strength,Balance,Coordination,Sensation,Tone, Cognition,Bed Mobility,Transfers,Gait,Activity Tolerance Progress Towards Progressing Toward Goals Goals Assessment Summary pt requiring min to mod A with ambulation using FWW. pt continues to present with LLE weakness and decrease standing balance but has improved since eval and currently only needing min to mod A for mobility. pt will benefit from acute rehab to improve overall mobility independence. Goals Bed Mobility Goal Standby Assistance Transfer Goal Standby Assistance,Front Wheeled Walker Gait Goal Standby Assistance,Front Wheel Walker Gait Distance 50 Other Goals improve bed mobility, transfers, ambulation using FWW 100 ft SBA Days to Meet Goals 10 Frequency of Treatment Frequency Of Once a Day Treatment Treatment Plan Physical Therapy Bed Mobility Training,Transfer Training,Gait Training, Treatment Plan Therapeutic Exercise,Balance Retraining,Discharge Planning,Hot or Cold Pack,Neuromuscular Re-ed, Coordination Retraining,Manual Therapy Recommendations To Nursing Amount of Assist 1 Person Assist Needed Discharge Recommendations PT Discharge Acute Rehab Recommendations Transportation Needs Wheelchair/Cabulance at Discharge - PT assist 1
[2025-02-28 12:00] VITALS: BP 114/70; PULSE 66; RESP 19; TEMP 36.1; O2SAT 96
--- NOTE | 2025-02-28 14:53 | PC.NURSE ---
Pt is A&OX4, VSS, afebrile on RA. Patient calls appropriately for assistance mobilizing. L leg weakness and unstable gait. He has L hand tremor which he reports began before CVA but has progressed significantly. He denies dizziness, numbness tingling to extremities, GATES, SOB or CP. NIH 1-2.He is medically cleared for dishcarge to Rehab facility in [place]. Report called to Uli Michael this afternoon. arrives at 1300 to transport patient. He is escorted via w/ch to private vehicle with for transport to [facility] stroke rehab facility with all of his personal belongings.
== END 2025-02-28 14:15 | DRG 66 ==
LOC: ED 23:40 → ICU 02-24 05:34 → AC 02-24 13:20
PROVIDERS: Internal Medicine; Pharmacist Pharmacist Clinician (PhC)/ Clinical Pharmacy Specialist; Admitting Provider Internal Medicine; Emergency Provider Student in an Organized Health Care Education/Training Program; Family Provider Family Medicine; PCP Family Medicine; Referring Provider Student in an Organized Health Care Education/Training Program; Visit Provider Internal Medicine
DX: I63.421 Cerebral infarction due to embolism of right anterior cerebral artery (principal); I10 Essential (primary) hypertension; E11.9 Type 2 diabetes mellitus without complications; M50.322 Other cervical disc degeneration at C5-C6 level; M48.02 Spinal stenosis, cervical region; M51.369 Other intervertebral disc degeneration, lumbar region without mention of lumbar back pain or lower extremity pain; M48.07 Spinal stenosis, lumbosacral region; G83.14 Monoplegia of lower limb affecting left nondominant side; R29.703 NIHSS score 3; R47.81 Slurred speech; I95.9 Hypotension, unspecified; R29.818 Other symptoms and signs involving the nervous system; R29.704 NIHSS score 4; I35.1 Nonrheumatic aortic (valve) insufficiency; Q23.81 Bicuspid aortic valve; Z79.84 Long term (current) use of oral hypoglycemic drugs; Z87.891 Personal history of nicotine dependence; Z95.2 Presence of prosthetic heart valve; Z79.85 Long-term (current) use of injectable non-insulin antidiabetic drugs
CPT/HCPCS: 36415; 51798; 70450; 70492; 70496; 70498; 70553; 72131; 72156; 72157; 72158; 80048; 80053; 80305; 80320; 81001; 82550; 82962; 83036; 83735; 84484; 85025; 85610; 85730; 87797; 93005; 93010; 93306; 96374; 97110; 97129; 97162; 97165; 97530; 97535; 99285; 99291; A9579; J1100; J1644; J1815; Q9967

== ENCOUNTER 2025-08-29 15:57 | Emergency (ER) | payer BC, SELFPAY ==
[2025-02-24 02:13] VITALS: BMI 31.5
[2025-08-29 16:22] VITALS: BP 186/91; PULSE 65; RESP 16; TEMP 36.1; O2SAT 95; BMI 33.3
--- NOTE | 2025-08-29 18:02 | ED_ITS ---
<Statement entered by Danis Markham, DO - 08/29/25 22:56> Co-sign statement: I was available for consultation during this patient's emergency department visit. This chart is being signed by myself for administrative purposes only. I do not have direct contact with this patient during this visit. They were seen independently by the APC. HPI - General Adult General Chief complaint: Urogenital-Female Stated complaint: CATHETER ISSUES Time Seen by Provider: 08/29/25 16:27 Mode of arrival: Wheelchair History of Present Illness HPI narrative: 74-year-old male with an indwelling Villanueva catheter presents to the ED with some issues with his urinary catheter. 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 When that was removed and a new stat lock was placed, catheter was draining properly. Patient was educated on correct catheter usage. Patient verbalized understanding. Related Data Home Medications ?Medication ?Instructions ?Recorded ?Confirmed amlodipine 10 mg tablet 10 mg PO DAILY 02/24/2502/06 blood sugar diagnostic (OneTouch 02/24/25 02/24/25 Verio test strips) blood-glucose meter (True Metrix 02/24/25 02/24/25 Glucose Meter) cholecalciferol (vitamin D3) 125 5,000 unit PO DAILY P RN vitamin 02/24/25 02/24/25 mcg (5,000 unit) tablet replacement ferrous gluconate 324 mg (37.5 mg 324 mg PO BEDTIME 02/24/25 iron) tablet lisinopril 40 mg tablet 40 mg PO DAILY 02/24/2502/06 metformin 500 mg tablet 1,000 mg PO BID 02/24/25 ealfuawm-niy-xoiul acid 0.4 1 tab PO DAILY 02/24/25 mg-lycopene 300 mcg-lutein 250 mcg tablet (Centravites 50 Plus) potassium chloride 20 mEq 20 meq PO BID 02/24/2502/24 tablet,extended release pregabalin 150 mg capsule 150 mg PO BID 02/24/2502/24 semaglutide 0.25 mg or 0.5 mg (2 0.5 mg SUBCUT WEEKLY 02/24/25 02/24/25 mg/3 mL) subcutaneous pen injector (Ozempic) Previous Rx's ?Medication ?Instructions ?Recorded acetaminophen 325 mg tablet 650 mg (2 x 325 mg) PO Q6H PRN 02/28/25 Fever/Mild Pain (1-3) #90 tabs aspirin 81 mg tablet,delayed 81 mg PO DAILY #90 tabs 0 02/28/25 release atorvastatin 80 mg tablet 80 mg PO BEDTIME #90 tabs clopidogrel 75 mg tablet 75 mg PO DAILY #20 tabs 02/06 12/30 docusate sodium 100 mg capsule 100 mg PO BID #30 caps 02/28/25 pantoprazole 40 mg tablet,delayed 40 mg PO 1600 #30 ta bs 02/28/25 release polyethylene glycol 3350 17 gram 17 gm PO DAILY PRN CO NSTIPATION 02/28/25 oral powder packet #30 ea Allergies Allergy/AdvReac Type Severity Reaction Status Date / Time fluconazole Allergy Unknown Verified 08/29/25 16:22 Review of Systems Constitutional Constitutional: Denies chills, Denies fatigue, Denies fever(s), Denies frequent falls, Denies lethargy and Denies weakness Eyes Eyes: Denies change in vision, Denies eye discharge, Denies irritation and Denies loss of vision ENT Ears, Nose, Mouth, and Throat: Denies change in voice, Denies dizziness, Denies neck pain, Denies sore throat and Denies throat swelling Cardiovascular Cardiovascular: Denies chest pain, Denies irregular heart rhythm, Denies lightheadedness, Denies palpitations, Denies dyspnea, Denies dyspnea on exertion and Denies orthopnea Respiratory Respiratory: Denies cough, Denies dyspnea, Denies dyspnea on exertion and Denies wheezing Gastrointestinal Gastrointestinal: Denies abdominal pain, Denies change in bowel habits, Denies diarrhea, Denies nausea and Denies vomiting Genitourinary Comments: Urinary catheter problems Musculoskeletal Musculoskeletal: Denies neck pain and Denies numbness Integumentary/Breasts Skin/Breast: Denies pruritus, Denies erythema, Denies rash and Denies wounds Neurologic Neurologic: Denies behavioral changes, Denies confusion, Denies dizziness, Denies frequent falls, Denies loss of vision, Denies numbness and Denies weakness Psychiatric Psychiatric: Denies anxiety, Denies behavioral changes, Denies confusion, Denies depression, Denies homicidal ideation and Denies suicidal ideation Endocrine Endocrine: Denies fatigue, Denies flushing and Denies palpitations Hematologic/Lymphatic Hematologic/Lymphatic: Denies easy bruising Allergic/Immunologic Allergic/Immunologic: Denies urticaria, Denies throat swelling and Denies wheez ing Patient History Medical History (Updated 08/29/25 @ 18:11 by Keaton Dalton PA-C) Hypertension Social History household members: spouse alcohol intake: current alcohol intake frequency: holidays/special occasions only Exam Narrative Exam Narrative: Const General:?cooperative, healthy appearing and comfortable [facility] Head:?normal to inspection Ears:?hearing grossly normal bilaterally Nose:?external nose normal Face and sinus:?normal facial exam and sinuses nontender Mouth:?oral mucosae normal Throat:?posterior oropharynx normal Eyes General:?appearance normal, both eyes and all related structures Neck Neck:?normal visual inspection and no lymphadenopathy noted Resp Effort & Inspection:?normal respiratory effort Auscultation:?clear to auscultation bilaterally Cardio Rate:?regular rate Rhythm:?regular rhythm Villanueva catheter in place, hooked up incorrectly with 2 bags. Draining appropriately after correcting the configuration. Neuro General:?patient alert, patient awake and patient oriented x3 Initial Vital Signs Initial Vital Signs: Vital Signs Temperature 97.0 F L 08/29/25 16:22 Pulse Rate 65 08/29/25 16:22 Respiratory Rate 16 08/29/25 16:22 Blood Pressure 186/91 H 08/29/25 16:22 Pulse Oximetry 95 08/29/25 16:22 Oxygen Delivery Method Room Air 08/29/25 16:22 Course Vital Signs Vital signs: Vital Signs - 8 hr 08/29/25 16:22 Temperature 97.0 F L Pulse Rate 65 Respiratory Rate 16 Blood Pressure 186/91 H Pulse Oximetry 95 Oxygen Delivery Method Room Air Medical Decision Making MDM Narrative Medical decision making narrative: 74-year-old male with an indwelling Villanueva catheter presents to the ED with some issues with his urinary catheter. 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 When that was removed and a new stat lock was placed, catheter was draining properly. Patient was educated on correct catheter usage. Patient verbalized understanding. ED return precautions discussed with patient. Patient verbalized understanding. Medical records reviewed: Yes Discharge Plan Departure Patient Disposition: Home Clinical Impression: Villanueva catheter problem Qualifiers: Encounter type: initial encounter Qualified Code(s): T83.9XXA - Unspecified complication of genitourinary prosthetic device, implant and graft, initial encounter Activity Restrictions/Additional Instructions: You presented to the emergency department with an issue with the Villanueva catheter. It was hooked up incorrectly and we have fixed it. You have been educated on how to incinerator plant general supervisor the Villanueva catheter correctly. Return to the ED if you have any other problems with the catheter. Prescriptions: No Action amlodipine 10 mg tablet 10 mg PO DAILY (DME) blood-glucose meter [True Metrix Glucose Meter] Misc MISCELLANEOUS DAILY (DME) OneTouch Verio test strips Strip MISCELLANEOUS DAILY metformin 500 mg tablet 1,000 mg PO BID lisinopril 40 mg tablet 40 mg PO DAILY pregabalin 150 mg capsule 150 mg PO BID potassium chloride 20 mEq tablet extended release 20 meq PO BID ferrous gluconate 324 mg (37.5 mg iron) tablet 324 mg PO BEDTIME Ozempic 0.25 mg or 0.5 mg (2 mg/3 mL) pen injector 0.5 mg SUBCUT WEEKLY Centravites 50 Plus 0.4 mg-300 mcg- 250 mcg tablet 1 tab PO DAILY cholecalciferol (vitamin D3) 125 mcg (5,000 unit) tablet 5,000 unit PO DAILY PRN (Reason: vitamin replacement) aspirin 81 mg Tablet,Delayed Release (Dr/Ec) 81 mg PO DAILY Qty: 90 0RF atorvastatin 80 mg tablet 80 mg PO BEDTIME Qty: 90 0RF acetaminophen 325 mg Tablet 650 mg PO Q6H PRN (Reason: Fever/Mild Pain (1-3)) Qty: 90 0RF polyethylene glycol 3350 17 gram Powder In Packet 17 gm PO DAILY PRN (Reason: CONSTIPATION) Qty: 30 0RF clopidogrel 75 mg Tablet 75 mg PO DAILY Qty: 20 0RF pantoprazole 40 mg Tablet,Delayed Release (Dr/Ec) 40 mg PO 1600 Qty: 30 0RF docusate sodium 100 mg Capsule 100 mg PO BID Qty: 30 0RF Referrals: Humberto Castellanos MD [Primary Care Provider, Family Practice] Stand Alone Forms: Patient Portal/API
== END 2025-08-29 16:35 | disposition home or self-care (01) ==
PROVIDERS: Emergency Provider Student in an Organized Health Care Education/Training Program; Family Provider Family Medicine; PCP Family Medicine
DX: T83.9XXA Unspecified complication of genitourinary prosthetic device, implant and graft, initial encounter (principal)
CPT/HCPCS: 99281